=== PATIENT | female | born 1935 | race Caucasian/White ===

== ENCOUNTER → 2017-01-02 | Outpatient (CLI) | payer OTHER ==
[2015-11-11 09:11] VITALS: BP 182/76
[~2017-01-02] MED LIST: CALC500C PO; CHOL10002 PO; CINN500C PO; FENO160T PO; LISI2.5T PO; MAGN100T3 PO; METF500T4 PO; OMEG-33 PO; WARF2.5T71 PO; WARF2TAB7 PO; [UNRECOGNIZED DRUG - CODE] MC
--- NOTE | 2017-01-02 13:14 | RAD ---
DATE: 01/02/2017 EXAM: DIGITAL SCREEN BILAT W/CAD HISTORY: Routine screening COMPARISON: 12/29/2015 This study was interpreted with the benefit of Computerized Aided Detection (CAD). FINDINGS: The breasts are heterogeneously dense. No new or enlarging breast densities are seen. Benign type calcifications are present in both breasts. No suspicious microcalcifications have developed. Benign-appearing lymph node type densities are again noted in both axillary regions. IMPRESSION: Stable mammograms without evidence of malignancy. BI-RADS CATEGORY: 2 BENIGN FINDING(S) RECOMMENDED FOLLOW-UP: 12M 12 MONTH FOLLOW-UP PQRS compliance statement: Patient information was entered into a reminder system with a target due date for the next mammogram. Mammography is a sensitive method for finding small breast cancers, but it does not detect them all and is not a substitute for careful clinical examination. A negative mammogram does not negate a clinically suspicious finding and should not result in delay in biopsying a clinically suspicious abnormality. "Our facility is accredited by the [employer] Mammography Program."
== END | disposition home or self-care (01) ==
LOC: MAMMO 08:00
PROVIDERS: ATTEND Family Medicine
DX: Z12.31 Encounter for screening mammogram for malignant neoplasm of breast (principal)
CPT/HCPCS: G0202; 77067

== ENCOUNTER → 2018-01-05 | Outpatient (CLI) | payer OTHER | END | disposition home or self-care (01) | LOC: MAMMO 10:55 | DX: Z12.31 Encounter for screening mammogram for malignant neoplasm of breast (principal); I10 Essential (primary) hypertension; E11.9 Type 2 diabetes mellitus without complications | CPT/HCPCS: 77067 ==

== ENCOUNTER → 2018-01-13 | Outpatient (CLI) | payer OTHER | END | disposition home or self-care (01) | LOC: MAMMO 10:26 | DX: R92.8 Other abnormal and inconclusive findings on diagnostic imaging of breast (principal) | CPT/HCPCS: 77065; G0279 ==

== ENCOUNTER → 2018-06-12 | Outpatient (CLI) | payer OTHER ==
[2015-11-11 09:11] VITALS: BP 182/76
[~2018-06-12] MED LIST changes: -CINN500C PO; +CINN500C2 PO; +METF500T16 PO; -METF500T4 PO; -WARF2TAB7 PO; +WARF2TAB96 PO
--- NOTE | 2018-06-12 12:16 | KCIC ---
EXAM: Dual energy x-ray absorptiometry (DEXA). HISTORY: Postmenopausal female presents for osteoporosis screening. COMPARISON: None. TECHNIQUE: Dual energy x-ray absorptiometry of the lumbar spine and left hip was performed. Calculation of bone mineral density based on standard deviations above or below the expected young adult normal value (T-score) was completed. FINDINGS: The average bone mineral density in the 1st through 4th lumbar vertebrae is 1.363 g/cmxcm, corresponding with a T-score of 2.6. The average total bone mineral density in the left hip is 0.862 g/cmxcm, corresponding with a T-score of -0.7. IMPRESSION: Normal bone mineral density. Note: Definitions established by the World Health Organization: 1. Normal: T-score is -1.0 or above. 2. Osteopenia: T-score is between -1.0 and -2.5 . 3. Osteoporosis: T-score is -2.5 or below. Electronically signed by: Rose Hernandez MD (06/12/2018 12:12 PM) [place] [id number]
== END | disposition home or self-care (01) ==
LOC: KCIC DEXA 11:11
PROVIDERS: ATTEND Family Medicine
DX: Z13.820 Encounter for screening for osteoporosis (principal); M15.9 Polyosteoarthritis, unspecified; E11.9 Type 2 diabetes mellitus without complications; I10 Essential (primary) hypertension; Z78.0 Asymptomatic menopausal state; Z88.2 Allergy status to sulfonamides; Z88.1 Allergy status to other antibiotic agents; Z88.8 Allergy status to other drugs, medicaments and biological substances; Z88.6 Allergy status to analgesic agent; Z90.49 Acquired absence of other specified parts of digestive tract; Z86.718 Personal history of other venous thrombosis and embolism
CPT/HCPCS: 77080

== ENCOUNTER → 2018-07-01 | Outpatient (CLI) | payer OTHER ==
[2015-11-11 09:11] VITALS: BP 182/76
--- NOTE | 2018-07-01 16:55 | KCIC ---
Right hip, 2 views, 07/01/2018: HISTORY: Hip pain The bony structures are demineralized. There is mild narrowing of the right hip joint with mild marginal spurring. No fracture or dislocation is identified. Degenerative change is also noted at the symphysis pubis. IMPRESSION: 1. Demineralization. 2. Mild degenerative change at the right hip joint. Electronically signed by: Barrett Garcia MD (07/01/2018 4:51 PM) [facility]
== END | disposition home or self-care (01) ==
LOC: KCIC 11:50
PROVIDERS: ATTEND Family Medicine
DX: M16.11 Unilateral primary osteoarthritis, right hip (principal)
CPT/HCPCS: 73502

== ENCOUNTER → 2019-01-14 | Outpatient (CLI) | payer OTHER ==
[2015-11-11 09:11] VITALS: BP 182/76
--- NOTE | 2019-01-15 13:00 | RAD ---
DATE: 01/14/2019 EXAM: MAMMO MIKAELA SCREENING BILATERAL HISTORY: Routine screening COMPARISON: 12/29/2015, 01/02/2017, 01/05/2018 mammographic exams This study was interpreted with the benefit of Computerized Aided Detection (CAD). Breast Density: HETERO The breast parenchyma is heterogenously dense, which could reduce sensitivity of mammography. Breast parenchyma level C. FINDINGS: Benign calcifications are present. No new mass or distortion. IMPRESSION: Stable. BI-RADS CATEGORY: 1 NEGATIVE RECOMMENDED FOLLOW-UP: 12M 12 MONTH FOLLOW-UP PQRS compliance statement: Patient information was entered into a reminder system with a target due date in one year for the next mammogram. Mammography is a sensitive method for finding small breast cancers, but it does not detect them all and is not a substitute for careful clinical examination. A negative mammogram does not negate a clinically suspicious finding and should not result in delay in biopsying a clinically suspicious abnormality. "Our facility is accredited by the [employer] Mammography Program."
== END | disposition home or self-care (01) ==
LOC: MAMMO 09:31
PROVIDERS: ATTEND Family Medicine
DX: Z12.31 Encounter for screening mammogram for malignant neoplasm of breast (principal); R92.1 Mammographic calcification found on diagnostic imaging of breast
CPT/HCPCS: 77063; 77067

== ENCOUNTER → 2019-03-15 | Outpatient (CLI) | payer OTHER ==
[2015-11-11 09:11] VITALS: BP 182/76
--- NOTE | 2019-03-15 17:07 | KCIC ---
Sonography of the left parotid gland Clinical indications: Left parotid mass. FINDINGS: High-resolution sonography of the left parotid gland was performed. No solid mass or cyst or abscess is identified within the left parotid gland. IMPRESSION: Unremarkable sonogram of the left parotid gland. If a persistent mass is palpable clinically, then a CT study of the neck with IV contrast may be helpful for further evaluation. Electronically signed by: Claude Griffin MD (03/15/2019 5:04 PM) [id number]
== END | disposition home or self-care (01) ==
LOC: KCIC US 11:32
PROVIDERS: ATTEND Otolaryngology
DX: K11.21 Acute sialoadenitis (principal)
CPT/HCPCS: 76536

== ENCOUNTER → 2020-05-22 | Outpatient (CLI) | payer OTHER ==
[2015-11-11 09:11] VITALS: BP 182/76
--- NOTE | 2020-05-22 13:15 | KCIC ---
HIP LEFT 1 VIEW WITH PELVIS DATE: 05/22/2020 12:00 AM INDICATION: LEFT HIP PAIN . Pain since March COMPARISON: None. FINDINGS: Bones: There is no evidence of acute fracture or dislocation. Joints: Mild degenerative changes of the hips, SI joints, and symphysis pubis. Miscellaneous: Pelvic phleboliths and possible calcified uterine fibroid. IMPRESSION: No acute osseous abnormality. Mild degenerative changes. Electronically signed by: Román Obrien MD (05/22/2020 1:12 PM) [id number]
== END | disposition home or self-care (01) ==
LOC: KCIC 09:53
PROVIDERS: ATTEND Family Medicine
DX: M16.12 Unilateral primary osteoarthritis, left hip (principal); M46.1 Sacroiliitis, not elsewhere classified; I87.8 Other specified disorders of veins
CPT/HCPCS: 73501

== ENCOUNTER 2020-07-05 22:08 | Emergency (ER) | payer OTHER ==
[~2020-07-05] VITALS: Ht 165.1 cm; Wt 81.0 kg
--- NOTE | 2020-07-05 22:38 | PHYS DOC ---
Past Medical History Past Medical History: Diabetes-Type II, DVT, Hypertension Past Surgical History: Cholecystectomy, Tonsillectomy, Other Additional Past Surgical Histo: veins stripped; lap band; right shoulder; D&Cx4 Smoking Status: Never Smoker Alcohol Use: None Drug Use: None General Adult EDM: Chief Complaint: MECHANICAL FALL HPI: HPI: Patient is a 84 year old female who arrives for evaluation following a mechanical fall. Patient was bending over and lost her balance and fell and hit her head. Patient is on Coumadin, her INR earlier this week was 2.8. Patient was dazed but did not have obvious loss of consciousness. Patient has a 5 out of 10 headache. Patient has a skin tear on her right hand as well as some bruising to her face. Review of Systems: Review of Systems: Constitutional: Denies fever or chills. [] Eyes: Denies change in visual acuity. [] HENT: Denies nasal congestion or sore throat. [] Respiratory: Denies cough or shortness of breath. [] Cardiovascular: Denies chest pain or edema. [] GI: Denies abdominal pain, nausea, vomiting, bloody stools or diarrhea. [] : Denies dysuria. [] Musculoskeletal: Denies back pain or joint pain. [] Integument: Denies rash. Patient complains of a skin tear to right hand Neurologic: Patient complains of headache but no, focal weakness or sensory changes. [] Endocrine: Denies polyuria or polydipsia. [] Lymphatic: Denies swollen glands. [] Psychiatric: Denies depression or anxiety. [] Heart Score: Risk Factors: Risk Factors: DM, Current or recent (<one month) smoker, HTN, HLP, family history of CAD, obesity. Risk Scores: Score 0 - 3: 2.5% MACE over next 6 weeks - Discharge Home Score 4 - 6: 20.3% MACE over next 6 weeks - Admit for Clinical Observation Score 7 - 10: 72.7% MACE over next 6 weeks - Early Invasive Strategies Current Medications: Current Medications Tetanus/ Diphtheria Toxoids (Tenivac Syringe) 0.5 ml ONCE ONCE VAX IM Last administered on 07/05/20at 23:23; Start 07/05/20 at 22:45; Stop 07/05/20 at 22:46; Status DC Active Scripts Active Reported Metformin Hcl 500 Mg Tablet 1 Tab PO BID Cinnamon (Cinnamon Bark) 500 Mg Capsule 500 Mg PO Calci-Mix (Calcium Carbonate) 500 Mg Capsule 500 Mg PO TID Vitamin D (Cholecalciferol (Vitamin D3)) 1,000 Unit Tablet 1,000 Unit PO BID Magnesium (Magnesium Amino Acid Chelate) 100 Mg Tablet 100 Mg PO BID Lysine Hcl 100 Gm Powder 100 Gm MC [place] 3 1,000 Mg Softgel ([place]-3 Fatty Acids/Fish Oil) 1 Each Capsule 1 Each PO DAILY Fenofibrate 160 Mg Tablet 160 Mg PO DAILY Warfarin Sodium 2 Mg Tablet 2 Mg PO Warfarin Sodium 2.5 Mg Tablet 2.5 Mg PO Lisinopril 2.5 Mg Tablet 2.5 Mg PO DAILY Current Medications Medications (Trade) Dose Ordered Sig/Cydney Start Time Stop Time Status Last Admin Dose Admin Tetanus/ Diphtheria Toxoids (Tenivac Syringe) 0.5 ml ONCE ONCE 07/05/20 22:45 07/05/20 22:46 Allergies: Allergies: Allergies Coded Allergies Type Severity Reaction Last Updated Verified caffeine Allergy Severe Anxiety 01/11/14 Yes Sulfa (Sulfonamide Antibiotics) Allergy Intermediate 10/06/15 Yes aspirin Allergy Intermediate tennitis 10/06/15 Yes camphor Allergy Intermediate 10/06/15 Yes cephalexin Allergy Intermediate 10/06/15 Yes ciprofloxacin Allergy Intermediate 01/11/14 No clocortolone Allergy Intermediate 10/06/15 Yes ibuprofen Allergy Intermediate 10/06/15 Yes meperidine Allergy Intermediate 10/06/15 Yes morphine Allergy Intermediate 10/06/15 Yes quinine Allergy Intermediate 10/06/15 Yes tetracycline Allergy Intermediate 10/06/15 Yes thimerosal Allergy Intermediate 10/06/15 Yes tramadol Allergy Intermediate 10/06/15 Yes Uncoded Allergies Type Severity Reaction Last Updated Verified mycins Allergy Unknown 10/06/15 Physical Exam: PE: Constitutional: Well developed, well nourished, no acute distress, non-toxic appearance. [] HENT: Abrasion to the right cheek, scattered bruising predominantly on the right side. No septal hematoma, ears normal no trismus no malocclusion Eyes: PERRLA, EOMI, conjunctiva normal, no discharge. [] Neck: Mildly tender. Cardiovascular: Occasionally irregular, peripheral pulse intact, cap refill brisk Lungs & Thorax: Bilateral breath sounds clear, no respiratory distress Abdomen: soft, no tenderness, no masses, no pulsatile masses. [] Skin: Skin tear to right hand, abrasion to right cheek Back: No tenderness, no CVA tenderness. [] Extremities: Skin tear to dorsum of right hand, neurovascular intact distally Neurologic: Alert and oriented X 3, normal motor function, normal sensory function, no focal deficits noted. [] Psychologic: Affect normal, judgement normal, mood normal. [] Current Patient Data: Labs: Laboratory Tests Test 07/05/20 22:44 White Blood Count 8.8 x10^3/uL Red Blood Count 4.13 x10^6/uL Hemoglobin 12.7 g/dL Hematocrit 37.8 % Mean Corpuscular Volume 92 fL Mean Corpuscular Hemoglobin 31 pg Mean Corpuscular Hemoglobin Concent 34 g/dL Red Cell Distribution Width 13.2 % Platelet Count 265 x10^3/uL Neutrophils (%) (Auto) 61 % Lymphocytes (%) (Auto) 27 % Monocytes (%) (Auto) 8 % Eosinophils (%) (Auto) 3 % Basophils (%) (Auto) 1 % Neutrophils # (Auto) 5.4 x10^3/uL Lymphocytes # (Auto) 2.4 x10^3/uL Monocytes # (Auto) 0.7 x10^3/uL Eosinophils # (Auto) 0.3 x10^3/uL Basophils # (Auto) 0.1 x10^3/uL Prothrombin Time 31.3 SEC Prothromb Time International Ratio 3.0 Activated Partial Thromboplast Time 55 SEC Sodium Level 135 mmol/L Potassium Level 4.2 mmol/L Chloride Level 100 mmol/L Carbon Dioxide Level 28 mmol/L Anion Gap 7 Blood Urea Nitrogen 20 mg/dL Creatinine 1.0 mg/dL Estimated GFR (Cockcroft-Gault) 52.8 BUN/Creatinine Ratio 20 Glucose Level 122 mg/dL Calcium Level 9.6 mg/dL Total Bilirubin 0.2 mg/dL Aspartate Amino Transf (AST/SGOT) 17 U/L Alanine Aminotransferase (ALT/SGPT) 18 U/L Alkaline Phosphatase 24 U/L Total Protein 7.4 g/dL Albumin 3.6 g/dL Albumin/Globulin Ratio 0.9 Current Medications Medications (Trade) Dose Ordered Sig/Cydney Route PRN Reason Start Time Stop Time Status Last Admin Dose Admin Tetanus/ Diphtheria Toxoids (Tenivac Syringe) 0.5 ml ONCE ONCE VAX IM 07/05/20 22:45 07/05/20 22:46 DC 07/05/20 23:23 Vital Signs: Vital Signs Date Time Temp Pulse Resp B/P (MAP) Pulse Ox O2 Delivery O2 Flow Rate FiO2 07/05/20 22:15 97.9 75 18 186/80 (115) 95 Room Air 97.9 EKG: EKG: [] Radiology/Procedures: Radiology/Procedures: [][place] [id number] [place] [address] IMAGING REPORT Signed PATIENT: RITU PEREZ ACCOUNT: [id number] : 1935 LOCATION: ER AGE: 84 SEX: F EXAM STATUS: REG ER ORD. PHYSICIAN: ORLANDO PACKER MD REASON: FALL PROCEDURE: PELVIS EXAM: PELVIS 1 VIEW. HISTORY: Fall, pain. COMPARISON: 05/22/2020. FINDINGS: There are limitations from underpenetration. No fractures are identified. The joint spaces and alignment of both hips are maintained. There are moderate to severe degenerative changes within the lower lumbar spine. A 3.2 cm pelvic calcification is likely a degenerated fibroid. Cholecystectomy clips are noted. IMPRESSION: 1. No displaced fracture. Electronically signed by: Robby Vaughan MD (07/05/2020 10:56 PM) [facility] DICTATED and SIGNED BY: AIRAM VAUGHAN MD DATE: 07/05/20 [id number] [place] [address] IMAGING REPORT Signed PATIENT: RITU PEREZ ACCOUNT: [id number] : 1935 LOCATION: ER AGE: 84 SEX: F EXAM STATUS: REG ER ORD. PHYSICIAN: ORLANDO PACKER MD REASON: FALL PROCEDURE: PORTABLE CHEST 1V EXAM: CHEST ONE VIEW. HISTORY: Fall, trauma. COMPARISON: 11/11/2015. FINDINGS: A frontal view of the chest is obtained. There are no confluent infiltrates. There is no pneumothorax or pleural effusion. The heart is not enlarged. There are atherosclerotic calcifications of the aorta. The right distal clavicle has been resected. IMPRESSION: 1. No confluent infiltrates. Electronically signed by: Robby Vaughan MD (07/05/2020 10:57 PM) [facility] DICTATED and SIGNED BY: AIRAM VAUGHAN MD DATE: 07/05/20 [address] [facility] [address] [place] [address] IMAGING REPORT Signed PATIENT: RITU PEREZ ACCOUNT: [id number] : 1935 LOCATION: ER AGE: 84 SEX: F EXAM STATUS: REG ER ORD. PHYSICIAN: ORLANDO PACKER MD REASON: FALL, HEAD INJURY ON COUMADIN PROCEDURE: CT CERVICAL SPINE WO CONTRAST EXAM: 1. CT HEAD WITHOUT CONTRAST. 2. CT FACIAL BONES WITHOUT CONTRAST. 3. CT CERVICAL SPINE WITHOUT CONTRAST. HISTORY: Fall with head and facial trauma. Anticoagulated. TECHNIQUE: Computed tomography of the head, facial bones and cervical spine was performed without intravenous contrast. One or more of the following individualized dose reduction techniques were utilized for this examination: 1. Automated exposure control. 2. Adjustment of the mA and/or kV according to patient size. 3. Use of iterative reconstruction technique. COMPARISON: None. FINDINGS: There is no intracranial hemorrhage. Hypoattenuation within the periventricular white matter indicates mild chronic microangiopathic change. Prominence of the lateral ventricles and hemispheric sulci indicates mild atrophy for patient age. The temporal bones are unremarkable. The calvarium reveals no suspicious lesions. There is mild soft tissue swelling along the right forehead. No facial fractures are identified. The visualized paranasal sinuses appear clear. There are changes of bilateral cataract surgery. There is mild reversal of the normal cervical lordosis across C5-C7, likely positional. There is moderate osteoarthritis at C1/2. No fractures are identified. Degenerative disc disease is moderate to severe from C5 T2 and mild more superiorly. There is no prevertebral soft tissue swelling. At C2-3, there is a moderate posterior disc bulge, likely with a superimposed moderate central protrusion. Central canal stenosis appears at least mild with abutment of the anterior cord. Right facet osteoarthritis is moderate to severe. Uncovertebral osteoarthritis is mild on the right. Neural foraminal stenosis is moderate on the right. At C3-4, there is a small posterior disc-osteophyte complex. Left facet osteoarthritis is severe. Uncovertebral osteoarthritis is moderate bilaterally. Neural foraminal stenosis is severe bilaterally. Central canal stenosis is mild to moderate. At C4-5, there is a small posterior disc bulge. Facet osteoarthritis is moderate to severe on the left greater than right. Uncovertebral osteoarthritis is mild bilaterally. Neural foraminal stenosis is moderate to severe bilaterally. At C5-6, there is a moderate posterior disc-osteophyte complex. Central canal stenosis appears moderate. Uncovertebral osteoarthritis is moderate bilaterally. Neural foraminal stenosis is moderate to severe bilaterally. At C6-7, there is a small posterior disc bulge. Uncovertebral osteoarthritis is mild bilaterally. Neural foraminal stenosis is moderate to severe bilaterally. IMPRESSION: 1. No acute intracranial findings. 2. No facial fractures. 3. No cervical fracture or acute malalignment. 4. Moderate to severe cervical degenerative changes result in central canal stenosis that is at least moderate at C5-6 and mild to moderate elsewhere. Multilevel bilateral neural foraminal stenosis is up to severe as above. Electronically signed by: Robby Vaughan MD (07/05/2020 11:22 PM) [facility] DICTATED and SIGNED BY: AIRAM VAUGHAN MD DATE: 07/05/202321 Course & Med Decision Making: Course & Med Decision Making Pertinent Labs and Imaging studies reviewed. (See chart for details) [] 84-year-old female presents with a mechanical fall. Patient is on Coumadin and hit her head. Therefore head CT was done. Fortunately all imaging are negative. Patient was given a tetanus shot. Nurse instructed put Steri-Strips on the hand and patient be stable for discharge. Dragon Disclaimer: Dragon Disclaimer: This electronic medical record was generated, in whole or in part, using a voice recognition dictation system. Departure Departure Impression: Primary Impression: Head injury Additional Impressions: Facial contusion Skin tear of right hand without complication Condition: STABLE Referrals: JEANNETTE DEL ROSARIO (PCP) 2-3 days Patient Instructions: Head Injury, Adult Additional Instructions: EMERGENCY DEPARTMENT GENERAL DISCHARGE INSTRUCTIONS THANK YOU for coming to [facility] Emergency Department (ED) today and trusting us with your care. We trust that you had a positive experience in our Emergency Department. If you wish to speak to the department Management you can contact the supervisor assembly department at . YOUR FOLLOW UP INSTRUCTIONS ARE FOLLOWS: Do you have a private doctor? If you do not have a private doctor, please ask for a resource list of physicians or clinics that may be able to assist you with follow up care. The Emergency Physician has interpreted your x-rays. The X-ray specialist will also review them. If there is a change in the findings you will be notified in 48 hours when at all possible. A lab test or lab culture may have been done, your results will be reviewed and you will be notified if you need a change in treatment. ADDITIONAL INSTRUCTIONS AND INFORMATION Your care today has been supervised by a physician who is specially trained in emergency care. Many problems require more than one evaluation for a complete diagnosis and treatment. We recommend that you schedule your follow up appointment as recommended to ensure complete treatment of your illness or injury. If you are unable to obtain follow up care and continue to have a problem, or if your condition worsens we recommend that you return to the ED. We are not able to safely determine your condition over the phone nor are we able to give sound medical advice over the phone. For these safety reasons, if you call for medical advice we will ask you to come to the ED for further evaluation If you have any questions regarding these discharge instructions please call the ED at . SAFETY INFORMATION In the interest of safety, wellness, and injury prevention; we encourage you to wear your seatbelt, if you smoke; quit smoking, and we encourage your family to use protective helmet for bicycling and other sporting events that present an increased risk for head injury. IF YOUR SYMPTOMS WORSEN OR NEW SYMPTOMS DEVELOP, OR YOU HAVE CONCERNS ABOUT YOUR CONDITION; OR IF YOUR CONDITION WORSENS WHILE YOU ARE WAITING FOR YOUR FOLLOW UP APPOINTMENT; EITHER CONTACT YOUR PRIMARY CARE DOCTOR, THE PHYSICIAN WHOSE NAME AND NUMBER YOU WERE GIVEN, OR RETURN TO THE ED IMMEDIATELY. ORLANDO PACKER MD Jul 05, 2020 22:38
[2020-07-05] MEDS ORDERED: TETANUS AND DIPHTHERIA TOX/PF 0.5 ML DISP.SYRIN. VAX IM ONE (22:45)
[2020-07-05 22:57] LABS: BASO # 0.1 x10^3/uL (0.0-0.2); BASO % 1 % (0-3); EOS # 0.3 x10^3/uL (0.0-0.7); EOS % 3 % (0-3); HEMATOCRIT 37.8 % (36.0-47.0); HEMOGLOBIN 12.7 g/dL (12.0-15.5); LYMPH # 2.4 x10^3/uL (1.0-4.8); LYMPH % 27 % (24-48); MEAN CORPUSCULAR HEMOGLOBIN 31 pg (25-35); MEAN CORPUSCULAR HGB CONC 34 g/dL (31-37); MEAN CORPUSCULAR VOLUME 92 fL (79-100); MONO # 0.7 x10^3/uL (0.0-1.1); MONO % 8 % (0-9); NEUT # 5.4 x10^3/uL (1.8-7.7); NEUT % 61 % (31-73); PLATELET COUNT 265 x10^3/uL (140-400); RED BLOOD COUNT 4.13 x10^6/uL (3.50-5.40); RED CELL DISTRIBUTION WIDTH 13.2 % (11.5-14.5); WHITE BLOOD COUNT 8.8 x10^3/uL (4.0-11.0)
--- NOTE | 2020-07-05 22:59 | RAD ---
EXAM: PELVIS 1 VIEW. HISTORY: Fall, pain. COMPARISON: 05/22/2020. FINDINGS: There are limitations from underpenetration. No fractures are identified. The joint spaces and alignment of both hips are maintained. There are moderate to severe degenerative changes within the lower lumbar spine. A 3.2 cm pelvic calcification is likely a degenerated fibroid. Cholecystectomy clips are noted. IMPRESSION: 1. No displaced fracture. Electronically signed by: Robby Vaughan MD (07/05/2020 10:56 PM) [facility]
--- NOTE | 2020-07-05 23:00 | RAD ---
EXAM: CHEST ONE VIEW. HISTORY: Fall, trauma. COMPARISON: 11/11/2015. FINDINGS: A frontal view of the chest is obtained. There are no confluent infiltrates. There is no pneumothorax or pleural effusion. The heart is not enlarged. There are atherosclerotic calcifications of the aorta. The right distal clavicle has been resected. IMPRESSION: 1. No confluent infiltrates. Electronically signed by: Robby Vaughan MD (07/05/2020 10:57 PM) [facility]
[2020-07-05 23:01] LABS: CALCIUM 9.6 mg/dL (8.5-10.1); GFR 52.8; POTASSIUM 4.2 mmol/L (3.5-5.1)
[2020-07-05 23:05] LABS: PROTHROMBIN TIME PATIENT 31.3 SEC (11.7-14.0)
[2020-07-05 23:07] LABS: ALBUMIN 3.6 g/dL (3.4-5.0); ALBUMIN/GLOBULIN RATIO 0.9 (1.0-1.7); TOTAL BILIRUBIN 0.2 mg/dL (0.2-1.0); TOTAL PROTEIN 7.4 g/dL (6.4-8.2)
--- NOTE | 2020-07-05 23:25 | RAD ---
EXAM: 1. CT HEAD WITHOUT CONTRAST. 2. CT FACIAL BONES WITHOUT CONTRAST. 3. CT CERVICAL SPINE WITHOUT CONTRAST. HISTORY: Fall with head and facial trauma. Anticoagulated. TECHNIQUE: Computed tomography of the head, facial bones and cervical spine was performed without intravenous contrast. One or more of the following individualized dose reduction techniques were utilized for this examination: 1. Automated exposure control. 2. Adjustment of the mA and/or kV according to patient size. 3. Use of iterative reconstruction technique. COMPARISON: None. FINDINGS: There is no intracranial hemorrhage. Hypoattenuation within the periventricular white matter indicates mild chronic microangiopathic change. Prominence of the lateral ventricles and hemispheric sulci indicates mild atrophy for patient age. The temporal bones are unremarkable. The calvarium reveals no suspicious lesions. There is mild soft tissue swelling along the right forehead. No facial fractures are identified. The visualized paranasal sinuses appear clear. There are changes of bilateral cataract surgery. There is mild reversal of the normal cervical lordosis across C5-C7, likely positional. There is moderate osteoarthritis at C1/2. No fractures are identified. Degenerative disc disease is moderate to severe from C5 T2 and mild more superiorly. There is no prevertebral soft tissue swelling. At C2-3, there is a moderate posterior disc bulge, likely with a superimposed moderate central protrusion. Central canal stenosis appears at least mild with abutment of the anterior cord. Right facet osteoarthritis is moderate to severe. Uncovertebral osteoarthritis is mild on the right. Neural foraminal stenosis is moderate on the right. At C3-4, there is a small posterior disc-osteophyte complex. Left facet osteoarthritis is severe. Uncovertebral osteoarthritis is moderate bilaterally. Neural foraminal stenosis is severe bilaterally. Central canal stenosis is mild to moderate. At C4-5, there is a small posterior disc bulge. Facet osteoarthritis is moderate to severe on the left greater than right. Uncovertebral osteoarthritis is mild bilaterally. Neural foraminal stenosis is moderate to severe bilaterally. At C5-6, there is a moderate posterior disc-osteophyte complex. Central canal stenosis appears moderate. Uncovertebral osteoarthritis is moderate bilaterally. Neural foraminal stenosis is moderate to severe bilaterally. At C6-7, there is a small posterior disc bulge. Uncovertebral osteoarthritis is mild bilaterally. Neural foraminal stenosis is moderate to severe bilaterally. IMPRESSION: 1. No acute intracranial findings. 2. No facial fractures. 3. No cervical fracture or acute malalignment. 4. Moderate to severe cervical degenerative changes result in central canal stenosis that is at least moderate at C5-6 and mild to moderate elsewhere. Multilevel bilateral neural foraminal stenosis is up to severe as above. Electronically signed by: Robby Vaughan MD (07/05/2020 11:22 PM) [facility]
[2020-07-06 01:09] VITALS: BP 153/67
== END 2020-07-06 01:38 | disposition home or self-care (01) ==
LOC: ER 22:08
DX: S61.411A Laceration without foreign body of right hand, initial encounter (principal); S00.83XA Contusion of other part of head, initial encounter; E11.9 Type 2 diabetes mellitus without complications; I10 Essential (primary) hypertension; R51.9 Headache, unspecified; R07.89 Other chest pain; Z86.718 Personal history of other venous thrombosis and embolism; Z79.01 Long term (current) use of anticoagulants; Z88.1 Allergy status to other antibiotic agents; Z88.2 Allergy status to sulfonamides; Z88.5 Allergy status to narcotic agent; Z88.6 Allergy status to analgesic agent; Z88.8 Allergy status to other drugs, medicaments and biological substances; W18.39XA Other fall on same level, initial encounter; Y93.89 Activity, other specified; Y92.89 Other specified places as the place of occurrence of the external cause; Y99.8 Other external cause status
CPT/HCPCS: 36415; 70450; 70486; 71045; 72125; 72170; 80053; 85025; 85610; 85730; 86850; 86900; 86901; 90471; 90714; 99285-25

== ENCOUNTER 2021-12-16 14:31 | Inpatient (IN) | payer MEDICARE, OTHER ==
[~2021-12-16] VITALS: Ht 152.4 cm; Wt 71.5 kg
[~2021-12-16 14:31] MED LIST changes: -LISI2.5T PO; +LISI2.5T12 PO
[2021-12-16] MEDS ORDERED: IV NORMAL SALINE 1000ML BAG 1,000 ML IV ONE (15:30)
[2021-12-16] MEDS ORDERED: IPRATRPIUM/ALBUTEROL 0.5/2.5MG 3 ML NEBU. NEB ONE (15:30)
--- NOTE | 2021-12-16 15:41 | PHYS DOC ---
Past Medical History Past Medical History: Diabetes-Type II, DVT, Hypertension Past Surgical History: Cholecystectomy, Tonsillectomy, Other Additional Past Surgical Histo: veins stripped; lap band; right shoulder; D&Cx4 Smoking Status: Never Smoker Alcohol Use: None Drug Use: None General Adult EDM: Chief Complaint: MULTIPLE COMPLAINTS HPI: HPI: Patient is an 86-year-old female who presents to the emergency department for multiple complaints. Patient reports that over the last 3 days she has had nausea, diarrhea, green productive cough, nasal congestion and drainage, fatigue, body aches and shortness of breath with exertion and laying flat. Patient has a history of DVT, diabetes and hypertension and is on Coumadin. Patient denies fevers, urinary symptoms, blood in her stools, recent travel, sick exposure, chest pain. Patient reports that she took 2 tests at home for COVID-19 was negative. Review of Systems: Review of Systems: HENT: See HPI Respiratory: See HPI Cardiovascular: See HPI GI: See HPI : See HPI Musculoskeletal: See HPI Heart Score: C/O Chest Pain: No Risk Factors: Risk Factors: DM, Current or recent (<one month) smoker, HTN, HLP, family history of CAD, obesity. Risk Scores: Score 0 - 3: 2.5% MACE over next 6 weeks - Discharge Home Score 4 - 6: 20.3% MACE over next 6 weeks - Admit for Clinical Observation Score 7 - 10: 72.7% MACE over next 6 weeks - Early Invasive Strategies Allergies: Allergies: Allergies Coded Allergies Type Severity Reaction Last Updated Verified caffeine Allergy Severe Anxiety 01/11/14 Yes Sulfa (Sulfonamide Antibiotics) Allergy Intermediate 10/06/15 Yes aspirin Allergy Intermediate tennitis 10/06/15 Yes camphor Allergy Intermediate 10/06/15 Yes cephalexin Allergy Intermediate 10/06/15 Yes ciprofloxacin Allergy Intermediate 01/11/14 No clocortolone Allergy Intermediate 10/06/15 Yes ibuprofen Allergy Intermediate 10/06/15 Yes meperidine Allergy Intermediate 10/06/15 Yes morphine Allergy Intermediate 10/06/15 Yes quinine Allergy Intermediate 10/06/15 Yes tetracycline Allergy Intermediate 10/06/15 Yes thimerosal Allergy Intermediate 10/06/15 Yes tramadol Allergy Intermediate 10/06/15 Yes Uncoded Allergies Type Severity Reaction Last Updated Verified mycins Allergy Unknown 10/06/15 Physical Exam: PE: Constitutional: Well developed, well nourished, no acute distress, non-toxic appearance. [] HENT: Normocephalic, atraumatic, bilateral external ears normal, oropharynx moist, no oral exudates, nose normal. [] Eyes: PERRL, EOMI, conjunctiva normal, no discharge. [] Neck: Normal range of motion no stridor Cardiovascular:Heart rate regular rhythm, no murmur [] Lungs & Thorax: Wheezing noted throughout Abdomen: Bowel sounds normal, soft, no tenderness, no masses, obese, no pulsatile masses. [] Skin: Warm, dry, no erythema, no rash. [] Back: Normal range of motion Extremities: No tenderness, no cyanosis, no clubbing, ROM intact, no edema. [] Neurologic: Alert and oriented X 3, normal motor function, normal sensory function, no focal deficits noted. [] Psychologic: Affect normal, judgement normal, mood normal. [] Current Patient Data: Labs: Laboratory Tests Test 12/16/21 15:35 12/16/21 16:15 White Blood Count 11.2 x10^3/uL Red Blood Count 4.12 x10^6/uL Hemoglobin 12.4 g/dL Hematocrit 37.8 % Mean Corpuscular Volume 92 fL Mean Corpuscular Hemoglobin 30 pg Mean Corpuscular Hemoglobin Concent 33 g/dL Red Cell Distribution Width 12.4 % Platelet Count 310 x10^3/uL Neutrophils (%) (Auto) 81 % Lymphocytes (%) (Auto) 12 % Monocytes (%) (Auto) 6 % Eosinophils (%) (Auto) 0 % Basophils (%) (Auto) 1 % Neutrophils # (Auto) 9.1 x10^3/uL Lymphocytes # (Auto) 1.3 x10^3/uL Monocytes # (Auto) 0.7 x10^3/uL Eosinophils # (Auto) 0.0 x10^3/uL Basophils # (Auto) 0.1 x10^3/uL Prothrombin Time 22.1 SEC Prothromb Time International Ratio 2.0 Activated Partial Thromboplast Time 52 SEC Sodium Level 127 mmol/L Potassium Level 4.3 mmol/L Chloride Level 91 mmol/L Carbon Dioxide Level 25 mmol/L Anion Gap 11 Blood Urea Nitrogen 13 mg/dL Creatinine 0.7 mg/dL Estimated GFR (Cockcroft-Gault) 79.3 BUN/Creatinine Ratio 19 Glucose Level 131 mg/dL Lactic Acid Level 1.1 mmol/L Calcium Level 9.6 mg/dL Total Bilirubin 0.3 mg/dL Aspartate Amino Transf (AST/SGOT) 25 U/L Alanine Aminotransferase (ALT/SGPT) 17 U/L Alkaline Phosphatase 27 U/L Troponin I High Sensitivity 13 ng/L BA-Buz-O-Type Natriuretic Peptide 414 pg/mL Total Protein 8.2 g/dL Albumin 3.7 g/dL Albumin/Globulin Ratio 0.8 Lipase 163 U/L Influenza Type A Antigen Negative Influenza Type B Antigen Negative SARS-CoV-2 Antigen (Rapid) Negative Current Medications Medications (Trade) Dose Ordered Sig/Cydney Route PRN Reason Start Time Stop Time Status Last Admin Dose Admin Albuterol/ Ipratropium (Duoneb) 3 ml 1X ONCE NEB 12/16/21 15:30 12/16/21 15:38 DC 12/16/21 15:44 Sodium Chloride 1,000 ml @ 1,000 mls/hr 1X ONCE IV 12/16/21 15:30 12/16/21 16:29 DC 12/16/21 15:47 Ondansetron HCl (Zofran) 4 mg 1X ONCE IVP 12/16/21 15:45 12/16/21 15:46 DC 12/16/21 15:46 Iohexol (Omnipaque 350 Mg/ml) 90 ml 1X ONCE IV 12/16/21 16:30 12/16/21 16:31 DC 12/16/21 16:51 Info (CONTRAST GIVEN -- Rx MONITORING) 1 each PRN DAILY PRN MC SEE COMMENTS 12/16/21 16:30 12/18/21 16:29 Vital Signs: Vital Signs Date Time Temp Pulse Resp B/P (MAP) Pulse Ox O2 Delivery O2 Flow Rate FiO2 12/16/21 14:50 98.7 94 20 221/94 (136) 91 Room Air 98.7 EKG: EKG: EKG performed by ER staff at 1526 shows sinus rhythm with a rate of 96, QTc is 461, no STEMI read by Dr. Butt at 1529. [] Radiology/Procedures: Radiology/Procedures: []PROCEDURE: CT ANGIOGRAPHY CHEST Exam: CT of chest with contrast INDICATION: Short of air, history of DVT TECHNIQUE: Sequential axial images through the chest obtained following the administration of 90 mL of Isovue-370 IV contrast. Sagittal and coronal reformatted images were reconstructed from the axial data and reviewed. 3-D reformatted images were reconstructed from the axial data and reviewed. Exposure: One or more of the following in the visualized dose reduction techniques were utilized for this examination: 1. Automated exposure control 2. Adjustment of the MA and/or KV according to patient size 3. Use of iterative of reconstructive technique Comparisons: Chest x-ray same day FINDINGS: Visualized portions of the thyroid are unremarkable. No enlargement isn't lymph nodes are identified. Heart size is normal. No pericardial effusion. Mild coronary calcifications. Thoracic aorta has a normal course and caliber. Pulmonary artery is not enlarged. No pulmonary embolus identified within the main, lobar or segmental pulmonary arteries. Airways are patent. Mild bronchial wall thickening. No consolidation or pneumothorax. No pleural effusion or thickening. Gastric banding noted. Diffuse hepatic steatosis. No suspicious osseous lesions or acute fractures. IMPRESSION: 1. No pulmonary embolus identified within the main, lobar or segmental pulmonary arteries 2. Mild bronchial wall thickening, may relate to bronchitis. Electronically signed by: Linn Patel MD (12/16/2021 4:51 PM) [facility] DICTATED and SIGNED BY: LINN PATEL MD DATE: 12/16/21 1646 REASON: soa PROCEDURE: PORTABLE CHEST 1V Chest AP portable at 1542: Reason for examination: Short of breath. Comparison is made to previous study dated 07/05/2020. The heart size is normal. Mediastinum is unremarkable. Lung estrada show mild increase in the lung markings at the bases which could reflect some mild interstitial infiltrates. No pleural effusions are seen. No pneumothorax is evident. No acute bony abnormalities are seen. IMPRESSION: Mildly increased markings in the lung bases. This could reflect some developing infiltrates. Recommend clinical correlation and follow-up. Electronically signed by: Wilfrid Hays MD (12/16/2021 4:31 PM) [facility] DICTATED and SIGNED BY: WILFRID HAYS MD DATE: 12/16/21 1629 Course & Med Decision Making: Course & Med Decision Making Pertinent Labs and Imaging studies reviewed. (See chart for details) Patient presents to the emergency department for multiple complaints including nausea, diarrhea, cough, nasal congestion, shortness of breath with exertion and laying flat, fatigue and body aches. Patient does have a history of DVT on Coumadin, therefore CT angio chest was performed to rule out pulmonary embolisms. Patient's work-up also included blood work including lipase, troponin, lactic acid, BNP. Chest x-ray performed to rule out pneumonia. EKG performed. Patient treated with IV fluids and a DuoNeb as she is wheezing as well as nausea medication. Following DuoNeb, patient's O2 saturation is 90% and is requiring 2 L of oxygen. Patient has a therapeutic INR, CBC mostly unremarkable, sodium is 127, she is symptomatic with nausea. Negative troponin, negative lactic acid, negative lipase, negative BNP. Chest x-ray shows infiltrates in the lung bases. CT angio does not show any blood clots. She had negative Covid and flu testing. Patient will be treated with IV antibiotics for the pneumonia. Patient will be prescribed azithromycin and rocephin-she reports that her reactoin to cephalexin and "mycins" are nausea, she will be prescribed prn nausea medication. As patient is requiring oxygen with pneumonia, she is also hyponatremic and sym ptomatic therefore she will need to be admitted to the emergency department. Discussed patient's case with Dr. Sumner who advised giving patient a second liter of normal saline and repeating labs in the morning and treating her pneumonia with IV antibiotics. ER bridge orders placed at 1719 Dragon Disclaimer: Britney Disclaimer: This electronic medical record was generated, in whole or in part, using a voice recognition dictation system. Departure Departure Impression: Primary Impression: Pneumonia Qualified Codes: J18.9 - Pneumonia, unspecified organism Additional Impressions: Hypoxia Hyponatremia Disposition: ADMITTED INPATIENT Admitting Physician: MADISYN Condition: GOOD Referrals: JEANNETTE DEL ROSARIO (PCP) WES JAMIL APRN Dec 16, 2021 15:41
[2021-12-16] MEDS ORDERED: ONDANSETRON PF 4 MG/2 ML VIAL. IVP ONE ×2 (15:45→17:30)
[2021-12-16 15:47] LABS: BASO # 0.1 x10^3/uL (0.0-0.2); BASO % 1 % (0-3); EOS % 0 % (0-3); HEMATOCRIT 37.8 % (36.0-47.0); HEMOGLOBIN 12.4 g/dL (12.0-15.5); LYMPH # 1.3 x10^3/uL (1.0-4.8); LYMPH % 12 % (24-48); MEAN CORPUSCULAR HEMOGLOBIN 30 pg (25-35); MEAN CORPUSCULAR HGB CONC 33 g/dL (31-37); MEAN CORPUSCULAR VOLUME 92 fL (79-100); MONO # 0.7 x10^3/uL (0.0-1.1); MONO % 6 % (0-9); NEUT # 9.1 x10^3/uL (1.8-7.7); NEUT % 81 % (31-73); PLATELET COUNT 310 x10^3/uL (140-400); RED BLOOD COUNT 4.12 x10^6/uL (3.50-5.40); RED CELL DISTRIBUTION WIDTH 12.4 % (11.5-14.5); WHITE BLOOD COUNT 11.2 x10^3/uL (4.0-11.0)
[2021-12-16 16:00] LABS: PROTHROMBIN TIME PATIENT 22.1 SEC (11.7-14.0)
[2021-12-16 16:01] LABS: CALCIUM 9.6 mg/dL (8.5-10.1); CREATININE 0.7 mg/dL (0.6-1.0); GFR 79.3; POTASSIUM 4.3 mmol/L (3.5-5.1)
[2021-12-16 16:07] LABS: ALBUMIN 3.7 g/dL (3.4-5.0); ALBUMIN/GLOBULIN RATIO 0.8 (1.0-1.7); TOTAL BILIRUBIN 0.3 mg/dL (0.2-1.0); TOTAL PROTEIN 8.2 g/dL (6.4-8.2)
[2021-12-16] MEDS ORDERED: IOHEXOL 350 MG/ML 100 ML VIAL. IV ONE (16:30)
[2021-12-16] MEDS ORDERED: CONTRAST GIVEN. MC PRN (16:30)
--- NOTE | 2021-12-16 16:33 | RAD ---
Chest AP portable at 1542: Reason for examination: Short of breath. Comparison is made to previous study dated 07/05/2020. The heart size is normal. Mediastinum is unremarkable. Lung estrada show mild increase in the lung mar kings at the bases which could reflect some mild interstitial infiltrates. No pleural effusions are s een. No pneumothorax is evident. No acute bony abnormalities are seen. IMPRESSION: Mildly increased markings in the lung bases. This could reflect some developing infiltrates. Recommen d clinical correlation and follow-up. Electronically signed by: Lizbeth Meyers MD (12/16/2021 4:31 PM) [facility]
[2021-12-16 16:46] LABS: INFLUENZA A PATIENT NEGATIVE (NEGATIVE); INFLUENZA B PATIENT NEGATIVE (NEGATIVE)
--- NOTE | 2021-12-16 16:53 | RAD ---
Exam: CT of chest with contrast INDICATION: Short of air, history of DVT TECHNIQUE: Sequential axial images through the chest obtained following the administration of 90 mL o f Isovue-370 IV contrast. Sagittal and coronal reformatted images were reconstructed from the axial d sol and reviewed. 3-D reformatted images were reconstructed from the axial data and reviewed. Exposure: One or more of the following in the visualized dose reduction techniques were utilized for this examination: 1. Automated exposure control 2. Adjustment of the MA and/or KV according to patient size 3. Use of iterative of reconstructive technique Comparisons: Chest x-ray same day FINDINGS: Visualized portions of the thyroid are unremarkable. No enlargement isn't lymph nodes are identified. Heart size is normal. No pericardial effusion. Mild coronary calcifications. Thoracic aorta has a nor mal course and caliber. Pulmonary artery is not enlarged. No pulmonary embolus identified within the main, lobar or segmental pulmonary arteries. Airways are patent. Mild bronchial wall thickening. No consolidation or pneumothorax. No pleural effusion or thickening. Gastric banding noted. Diffuse hepatic steatosis. No suspicious osseous lesions or acute fractures. IMPRESSION: 1. No pulmonary embolus identified within the main, lobar or segmental pulmonary arteries 2. Mild bronchial wall thickening, may relate to bronchitis. Electronically signed by: Linn Awad MD (12/16/2021 4:51 PM) [facility]
[2021-12-16] MEDS ORDERED: cefTRIAXone IV Push 1 GM VIAL. IVP ONE (17:15)
[2021-12-16] MEDS ORDERED: AZITHROMYCIN 500 MG in IV NORMAL SALINE 250ML 250 ML IV ONE (17:15)
--- NOTE | 2021-12-16 18:04 | PDOC1 ---
History and Physical Date of Service: DOS: DATE: 12/16/21 TIME: 17:37 Chief Complaint: Chief Complain: Multiple complaints History of Present Illness: HPI: 86-year-old female who presents to the emergency department for multiple complaints. Patient reports that over the last 3 days she has had nausea, diarrhea, green productive cough, nasal congestion and drainage, fatigue, body aches and shortness of breath with exertion and laying flat. Patient has a history of DVT, diabetes and hypertension and is on Coumadin. Patient denies fevers, urinary symptoms, blood in her stools, recent travel, sick exposure, chest pain. Patient reports that she took 2 tests at home for COVID-19 was negative. Past Medical/Surgical History: PMH/PSH: Past Medical History: Diabetes-Type II, DVT, Hypertension Past Surgical History: Cholecystectomy, Tonsillectomy, veins stripped; lap band ; right shoulder; D&Cx4 Allergies: Allergies: Coded Allergies: caffeine (Verified Allergy, Severe, Anxiety, 01/11/14) makes me have PVC's and MEAN Sulfa (Sulfonamide Antibiotics) (Verified Allergy, Intermediate, 10/06/15) aspirin (Verified Allergy, Intermediate, tennitis, 10/06/15) camphor (Verified Allergy, Intermediate, 10/06/15) cephalexin (Verified Allergy, Intermediate, 10/06/15) ciprofloxacin (Unverified Allergy, Intermediate, 01/11/14) clocortolone (Verified Allergy, Intermediate, 10/06/15) ibuprofen (Verified Allergy, Intermediate, 10/06/15) meperidine (Verified Allergy, Intermediate, 10/06/15) morphine (Verified Allergy, Intermediate, 10/06/15) quinine (Verified Allergy, Intermediate, 10/06/15) tetracycline (Verified Allergy, Intermediate, 10/06/15) thimerosal (Verified Allergy, Intermediate, 10/06/15) tramadol (Verified Allergy, Intermediate, 10/06/15) Uncoded Allergies: mycins (Allergy, Unknown, 10/06/15) Family History: Family History: Reviewed with no relative findings in the chart Social History: Social History: Smoking Status: Never Smoker Alcohol Use: None Drug Use: None Current Medications: Current Medications Current Medications Albuterol/ Ipratropium (Duoneb) 3 ml 1X ONCE NEB Last administered on 12/16/21at 15:44; Start 12/16/21 at 15:30; Stop 12/16/21 at 15:38; Status DC Sodium Chloride 1,000 ml @ 1,000 mls/hr 1X ONCE IV Last administered on 12/16/21at 15:47; Start 12/16/21 at 15:30; Stop 12/16/21 at 16:29; Status DC Ondansetron HCl (Zofran) 4 mg 1X ONCE IVP Last administered on 12/16/21at 15:46; Start 12/16/21 at 15:45; Stop 12/16/21 at 15:46; Status DC Iohexol (Omnipaque 350 Mg/ml) 90 ml 1X ONCE IV Last administered on 12/16/21at 16:51; Start 12/16/21 at 16:30; Stop 12/16/21 at 16:31; Status DC Info (CONTRAST GIVEN -- Rx MONITORING) 1 each PRN DAILY PRN MC SEE COMMENTS; Start 12/16/21 at 16:30; Stop 12/18/21 at 16:29 Sodium Chloride 1,000 ml @ 1,000 mls/hr Q1H IV ; Start 12/16/21 at 17:15; Stop 12/17/21 at 17:14 Ceftriaxone Sodium (Rocephin) 1 gm 1X ONCE IVP ; Start 12/16/21 at 17:15; Stop 12/16/21 at 17:20; Status DC Azithromycin 500 mg/Sodium Chloride 250 ml @ 250 mls/hr 1X ONCE IV ; Start 12/16/21 at 17:15; Stop 12/16/21 at 18:14 Ondansetron HCl (Zofran) 4 mg 1X ONCE IVP ; Start 12/16/21 at 17:30; Stop 12/16/21 at 17:31; Status DC Active Scripts Active Reported Metformin Hcl 500 Mg Tablet 1 Tab PO BID Cinnamon (Cinnamon Bark) 500 Mg Capsule 500 Mg PO Calci-Mix (Calcium Carbonate) 500 Mg Capsule 500 Mg PO TID Vitamin D (Cholecalciferol (Vitamin D3)) 1,000 Unit Tablet 1,000 Unit PO BID Magnesium (Magnesium Amino Acid Chelate) 100 Mg Tablet 100 Mg PO BID Lysine Hcl 100 Gm Powder 100 Gm [place] 3 1,000 Mg Softgel ([place]-3 Fatty Acids/Fish Oil) 1 Each Capsule 1 Each PO DAILY Fenofibrate 160 Mg Tablet 160 Mg PO DAILY Warfarin Sodium 2 Mg Tablet 2 Mg PO Warfarin Sodium 2.5 Mg Tablet 2.5 Mg PO Lisinopril 2.5 Mg Tablet 2.5 Mg PO DAILY ROS: Review of Systems Review of System REVIEW OF SYSTEMS: GENERAL: Denies weakness SKIN: No bruising, hair changes or rashes. EYES: No blurred, double or loss of vision. NOSE AND THROAT: No history of nosebleeds, hoarseness or sore throat. HEART: No history of palpitations, chest pain or shortness of breath on exertion. LUNGS: Positive shortness of breath GASTROINTESTINAL: Denies changes in appetite, nausea, vomiting, diarrhea or constipation. GENITOURINARY: No history of frequency, urgency, hesitancy or nocturia. NEUROLOGIC: Denies history of numbness, tingling, or tremor. PSYCHIATRIC: No history of panic, anxiety or depression. ENDOCRINE: No history of heat or cold intolerance, polyuria or polydipsia. EXTREMITIES: Denies joint pain, pain on walking or stiffness. Physical Exam: Vital Signs: Vital Signs Date Time Temp Pulse Resp B/P (MAP) Pulse Ox O2 Delivery O2 Flow Rate FiO2 12/16/21 16:41 76 215/77 (123) Nasal Cannula 2.0 12/16/21 15:47 95 12/16/21 14:50 98.7 20 98.7 Physcial Exam: General: Well developed, well nourished, no acute distress, well appearing HEENT: Pupils equally round and reactive to light, EOMI, no discharge, normal conjunctiva Neck: Supple, no nuchal rigidity, no JVD, trachea midline, no tenderness Cardiac: RRR, no murmurs, no gallops, no rubs Chest/Lungs: CTAB, no wheeze, no rhonchi, no crackles Abdomen: soft, non-distended, no guarding, no peritoneal signs, non-tender Back: No tenderness Extremities: no edema, pulses intact, non-tender,capillary refill <3 sec bilateral upper and lower extremities, Neuro: Alert and oriented x 4, no focal deficits, normal speech Labs: Labs: Laboratory Tests Test 12/16/21 15:35 12/16/21 16:15 White Blood Count 11.2 x10^3/uL (4.0-11.0) Red Blood Count 4.12 x10^6/uL (3.50-5.40) Hemoglobin 12.4 g/dL (12.0-15.5) Hematocrit 37.8 % (36.0-47.0) Mean Corpuscular Volume 92 fL (79-100) Mean Corpuscular Hemoglobin 30 pg (25-35) Mean Corpuscular Hemoglobin Concent 33 g/dL (31-37) Red Cell Distribution Width 12.4 % (11.5-14.5) Platelet Count 310 x10^3/uL (140-400) Neutrophils (%) (Auto) 81 % (31-73) Lymphocytes (%) (Auto) 12 % (24-48) Monocytes (%) (Auto) 6 % (0-9) Eosinophils (%) (Auto) 0 % (0-3) Basophils (%) (Auto) 1 % (0-3) Neutrophils # (Auto) 9.1 x10^3/uL (1.8-7.7) Lymphocytes # (Auto) 1.3 x10^3/uL (1.0-4.8) Monocytes # (Auto) 0.7 x10^3/uL (0.0-1.1) Eosinophils # (Auto) 0.0 x10^3/uL (0.0-0.7) Basophils # (Auto) 0.1 x10^3/uL (0.0-0.2) Prothrombin Time 22.1 SEC (11.7-14.0) Prothromb Time International Ratio 2.0 (0.8-1.1) Activated Partial Thromboplast Time 52 SEC (24-38) Sodium Level 127 mmol/L (136-145) Potassium Level 4.3 mmol/L (3.5-5.1) Chloride Level 91 mmol/L (98-107) Carbon Dioxide Level 25 mmol/L (21-32) Anion Gap 11 (6-14) Blood Urea Nitrogen 13 mg/dL (7-20) Creatinine 0.7 mg/dL (0.6-1.0) Estimated GFR (Cockcroft-Gault) 79.3 BUN/Creatinine Ratio 19 (6-20) Glucose Level 131 mg/dL (70-99) Lactic Acid Level 1.1 mmol/L (0.4-2.0) Calcium Level 9.6 mg/dL (8.5-10.1) Total Bilirubin 0.3 mg/dL (0.2-1.0) Aspartate Amino Transf (AST/SGOT) 25 U/L (15-37) Alanine Aminotransferase (ALT/SGPT) 17 U/L (14-59) Alkaline Phosphatase 27 U/L (46-116) Troponin I High Sensitivity 13 ng/L (4-50) ZR-Ldy-V-Type Natriuretic Peptide 414 pg/mL (0-449) Total Protein 8.2 g/dL (6.4-8.2) Albumin 3.7 g/dL (3.4-5.0) Albumin/Globulin Ratio 0.8 (1.0-1.7) Lipase 163 U/L (73-393) Influenza Type A Antigen Negative (NEGATIVE) Influenza Type B Antigen Negative (NEGATIVE) SARS-CoV-2 Antigen (Rapid) Negative (NEGATIVE) Laboratory Tests Test 12/16/21 15:35 12/16/21 16:15 White Blood Count 11.2 x10^3/uL (4.0-11.0) Red Blood Count 4.12 x10^6/uL (3.50-5.40) Hemoglobin 12.4 g/dL (12.0-15.5) Hematocrit 37.8 % (36.0-47.0) Mean Corpuscular Volume 92 fL (79-100) Mean Corpuscular Hemoglobin 30 pg (25-35) Mean Corpuscular Hemoglobin Concent 33 g/dL (31-37) Red Cell Distribution Width 12.4 % (11.5-14.5) Platelet Count 310 x10^3/uL (140-400) Neutrophils (%) (Auto) 81 % (31-73) Lymphocytes (%) (Auto) 12 % (24-48) Monocytes (%) (Auto) 6 % (0-9) Eosinophils (%) (Auto) 0 % (0-3) Basophils (%) (Auto) 1 % (0-3) Neutrophils # (Auto) 9.1 x10^3/uL (1.8-7.7) Lymphocytes # (Auto) 1.3 x10^3/uL (1.0-4.8) Monocytes # (Auto) 0.7 x10^3/uL (0.0-1.1) Eosinophils # (Auto) 0.0 x10^3/uL (0.0-0.7) Basophils # (Auto) 0.1 x10^3/uL (0.0-0.2) Prothrombin Time 22.1 SEC (11.7-14.0) Prothromb Time International Ratio 2.0 (0.8-1.1) Activated Partial Thromboplast Time 52 SEC (24-38) Sodium Level 127 mmol/L (136-145) Potassium Level 4.3 mmol/L (3.5-5.1) Chloride Level 91 mmol/L (98-107) Carbon Dioxide Level 25 mmol/L (21-32) Anion Gap 11 (6-14) Blood Urea Nitrogen 13 mg/dL (7-20) Creatinine 0.7 mg/dL (0.6-1.0) Estimated GFR (Cockcroft-Gault) 79.3 BUN/Creatinine Ratio 19 (6-20) Glucose Level 131 mg/dL (70-99) Lactic Acid Level 1.1 mmol/L (0.4-2.0) Calcium Level 9.6 mg/dL (8.5-10.1) Total Bilirubin 0.3 mg/dL (0.2-1.0) Aspartate Amino Transf (AST/SGOT) 25 U/L (15-37) Alanine Aminotransferase (ALT/SGPT) 17 U/L (14-59) Alkaline Phosphatase 27 U/L (46-116) Troponin I High Sensitivity 13 ng/L (4-50) AL-Eei-T-Type Natriuretic Peptide 414 pg/mL (0-449) Total Protein 8.2 g/dL (6.4-8.2) Albumin 3.7 g/dL (3.4-5.0) Albumin/Globulin Ratio 0.8 (1.0-1.7) Lipase 163 U/L (73-393) Influenza Type A Antigen Negative (NEGATIVE) Influenza Type B Antigen Negative (NEGATIVE) SARS-CoV-2 Antigen (Rapid) Negative (NEGATIVE) Images: Images PROCEDURE: CT ANGIOGRAPHY CHEST Exam: CT of chest with contrast INDICATION: Short of air, history of DVT TECHNIQUE: Sequential axial images through the chest obtained following the ad ministration of 90 mL of Isovue-370 IV contrast. Sagittal and coronal reformatted images were reconstructed from the axial data and reviewed. 3-D reformatted images were reconstructed from the axial data and reviewed. Exposure: One or more of the following in the visualized dose reduction techniques were utilized for this examination: 1. Automated exposure control 2. Adjustment of the MA and/or KV according to patient size 3. Use of iterative of reconstructive technique Comparisons: Chest x-ray same day FINDINGS: Visualized portions of the thyroid are unremarkable. No enlargement isn't lymph nodes are identified. Heart size is normal. No pericardial effusion. Mild coronary calcifications. Thoracic aorta has a normal course and caliber. Pulmonary artery is not enlarged. No pulmonary embolus identified within the main, lobar or segmental pulmonary arteries. Airways are patent. Mild bronchial wall thickening. No consolidation or pneumothorax. No pleural effusion or thickening. Gastric banding noted. Diffuse hepatic steatosis. No suspicious osseous lesions or acute fractures. IMPRESSION: 1. No pulmonary embolus identified within the main, lobar or segmental pulmonary arteries 2. Mild bronchial wall thickening, may relate to bronchitis. PROCEDURE: PORTABLE CHEST 1V Chest AP portable at 1542: Reason for examination: Short of breath. Comparison is made to previous study dated 07/05/2020. The heart size is normal. Mediastinum is unremarkable. Lung estrada show mild increase in the lung markings at the bases which could reflect some mild interstitial infiltrates. No pleural effusions are seen. No pneumothorax is evident. No acute bony abnormalities are seen. IMPRESSION: Mildly increased markings in the lung bases. This could reflect some developing infiltrates. Recommend clinical correlation and follow-up. Assessment/Plan Assessment/Plan Atypical bilateral pneumonia, possible gram-negative organisms, possible viral organisms Acute hypoxic respiratory failure Acute electrolyte derangementhyponatremia, hypochloremia suggestive of volume depletion Hypertensive urgency History of diabetes mellitus type 2 History of hypertension History of DVT on warfarin Admit to hospitalist service for further management IV antihypertensive regimen to maintain systolic blood pressures less than 180 Continue IV fluids Continue empiric IV antibiotics O2 supplementation to maintain O2 saturations greater than 92% Lovenox for DVT prophylaxis Protonix GI prophylaxis ADA diet CODE STATUS DNR Discussed with RN and SW Disposition inpatient management as above DPOA: Daughter Justifications for Admission Other Justification GABBY YAP MD Dec 16, 2021 18:04
[2021-12-16] MEDS ORDERED: SENNOSIDES 8.6 MG TABLET PO PRN (18:15)
[2021-12-16] MEDS ORDERED: DOCUSATE SODIUM 100 MG CAPSULE. PO PRN (18:15)
[2021-12-16] MEDS: IV NORMAL SALINE 1000ML BAG 1,000 ML IV SCH ×5 (18:15→23:41)
[2021-12-16] MEDS ORDERED: ONDANSETRON PF 4 MG/2 ML VIAL. IVP PRN (18:15)
[2021-12-16] MEDS ORDERED: ZOLPIDEM 5 MG TABLET. PO PRN (18:15)
[2021-12-16] MEDS ORDERED: diphenhydrAMINE 50 MG/ML VIAL IVP PRN (18:15)
[2021-12-16] MEDS ORDERED: DEXTROSE 50% 25 GM / 50ML DISP.SYRIN. IV PRN (18:15)
[2021-12-16] MEDS ORDERED: LORazepam 0.5 MG TABLET PO PRN (18:15)
[2021-12-16] MEDS ORDERED: PROCHLORPERAZINE 10 MG/2 ML VIAL. IV PRN (18:15)
[2021-12-16] MEDS ORDERED: diphenhydrAMINE HCL 25 MG CAPSULE PO PRN ×2 (18:15)
[2021-12-16] MEDS ORDERED: LABETALOL 20 MG/4 ML DISP.SYRIN. IVP PRN (19:15)
[2021-12-16] MEDS ORDERED: hydrALAZINE 20 MG/ML VIAL. IVP PRN (19:15)
[2021-12-16 19:23] LABS: BACTERIA,URINE 0 /HPF (0-FEW); RBC,URINE 0 /HPF (0-2); WBC,URINE 0 /HPF (0-4)
[2021-12-16 19:58] VITALS: BP 142/52
[2021-12-16] MEDS: CHOLECALCIFEROL (VITAMIN D3) 1,000 UNIT TABLET PO SCH (23:39)
[2021-12-16 23:48] VITALS: BP 121/43
[2021-12-17 03:09] VITALS: BP 125/49
[2021-12-17] MEDS: ACETAMINOPHEN 325 MG TABLET. PO PRN ×2 (03:33→18:21)
--- NOTE | 2021-12-17 04:49 | EKG ---
[facility] [address] [place] [address] Test Date: 2021-12-16 Test Time: 15:26:05 Pat Name: RITU PEREZ Department: Room: 6 Gender: F Section Gang: : [id number] Requested By: WES JAMIL Order Number: [id number] Reading MD: Don Aldrich MD Measurements Intervals [place] Rate: 96 P: 31 MA: 150 QRS: 84 QRSD: 138 T: 43 QT: 364 QTc: 461 Interpretive Statements SINUS RHYTHM RIGHT BUNDLE BRANCH BLOCK Electronically Signed On 12-18-2021 6:58:03 CDT by Don Aldrich MD
[2021-12-17 07:00] VITALS: BP 127/44
[2021-12-17 07:21] LABS: BASO % 1 % (0-3); EOS # 0.1 x10^3/uL (0.0-0.7); EOS % 1 % (0-3); HEMATOCRIT 34.2 % (36.0-47.0); HEMOGLOBIN 11.1 g/dL (12.0-15.5); LYMPH # 1.5 x10^3/uL (1.0-4.8); LYMPH % 20 % (24-48); MEAN CORPUSCULAR HEMOGLOBIN 30 pg (25-35); MEAN CORPUSCULAR HGB CONC 32 g/dL (31-37); MEAN CORPUSCULAR VOLUME 94 fL (79-100); MONO # 0.6 x10^3/uL (0.0-1.1); MONO % 9 % (0-9); NEUT # 5.2 x10^3/uL (1.8-7.7); NEUT % 70 % (31-73); PLATELET COUNT 255 x10^3/uL (140-400); RED BLOOD COUNT 3.65 x10^6/uL (3.50-5.40); RED CELL DISTRIBUTION WIDTH 12.5 % (11.5-14.5); WHITE BLOOD COUNT 7.5 x10^3/uL (4.0-11.0)
[2021-12-17 07:41] LABS: CALCIUM 8.3 mg/dL (8.5-10.1); CREATININE 0.8 mg/dL (0.6-1.0); MAGNESIUM 1.4 mg/dL (1.8-2.4); PHOSPHORUS 3.2 mg/dL (2.6-4.7); POTASSIUM 3.8 mmol/L (3.5-5.1)
[2021-12-17] MEDS: INSULIN LISPRO 300 UNITS/3 ML VIAL. SQ SCH ×3 (08:00→17:00)
[2021-12-17] MEDS: CHOLECALCIFEROL (VITAMIN D3) 1,000 UNIT TABLET PO SCH ×2 (08:18→20:35)
[2021-12-17] MEDS: IV NORMAL SALINE 1000ML BAG 1,000 ML IV SCH ×2 (08:51→21:32)
[2021-12-17] MEDS: DOXYCYCLINE HYCLATE 100 MG TABLET PO SCH ×2 (10:33→20:35)
[2021-12-17 11:00] VITALS: BP 161/55
[2021-12-17] MEDS ORDERED: MAGNESIUM SULFATE 4GM 100 ML IV ONE (11:00)
--- NOTE | 2021-12-17 11:10 | PDOC ---
[employer] PROGRESS NOTE Date of Service DOS: DATE: 12/17/21 TIME: 11:07 Chief Complaint Chief Complaint Atypical bilateral pneumonia, possible gram-negative organisms, possible viral organisms Acute hypoxic respiratory failure Acute electrolyte derangementhyponatremia, hypochloremia suggestive of volume depletion Hypertensive urgency History of diabetes mellitus type 2 History of hypertension History of DVT on warfarin Admit to hospitalist service for further management IV antihypertensive regimen to maintain systolic blood pressures less than 180 Continue IV fluids Continue empiric IV antibiotics O2 supplementation to maintain O2 saturations greater than 92% Lovenox for DVT prophylaxis Protonix GI prophylaxis ADA diet CODE STATUS DNR Discussed with RN and SW Disposition inpatient management as above DPOA: Daughter History of Present Illness History of Present Illness 12/17 Patient evaluated examined at bedside. She was sitting up at edge of bed. Still on nasal cannula said her breathing is still pretty bad. Continue IV antibiotics. We will add on steroids as well today and see how patient does. Otherwise continue current plan. Vitals/I&O Vitals/I&O: Vital Signs Date Time Temp Pulse Resp B/P (MAP) Pulse Ox O2 Delivery O2 Flow Rate FiO2 12/17/21 08:30 Nasal Cannula 2.0 12/17/21 07:00 98.3 63 16 127/44 (71) 93 98.3 I & O 12/16/21 12/16/21 12/17/21 15:00 23:00 07:00 Intake Total 1000 ml Output Total 650 ml Balance 1000 ml -650 ml Physical Exam General: Alert, Oriented X3, Cooperative Heart: Regular rate Lungs: Crackles, Other Abdomen: Normal bowel sounds, Soft, No tenderness Extremities: No edema, Normal pulses Skin: No significant lesion Labs Labs: Laboratory Tests Test 12/16/21 15:35 12/16/21 16:15 12/16/21 18:51 12/17/21 06:15 White Blood Count 11.2 x10^3/uL (4.0-11.0) 7.5 x10^3/uL (4.0-11.0) Red Blood Count 4.12 x10^6/uL (3.50-5.40) 3.65 x10^6/uL (3.50-5.40) Hemoglobin 12.4 g/dL (12.0-15.5) 11.1 g/dL (12.0-15.5) Hematocrit 37.8 % (36.0-47.0) 34.2 % (36.0-47.0) Mean Corpuscular Volume 92 fL (79-100) 94 fL (79-100) Mean Corpuscular Hemoglobin 30 pg (25-35) 30 pg (25-35) Mean Corpuscular Hemoglobin Concent 33 g/dL (31-37) 32 g/dL (31-37) Red Cell Distribution Width 12.4 % (11.5-14.5) 12.5 % (11.5-14.5) Platelet Count 310 x10^3/uL (140-400) 255 x10^3/uL (140-400) Neutrophils (%) (Auto) 81 % (31-73) 70 % (31-73) Lymphocytes (%) (Auto) 12 % (24-48) 20 % (24-48) Monocytes (%) (Auto) 6 % (0-9) 9 % (0-9) Eosinophils (%) (Auto) 0 % (0-3) 1 % (0-3) Basophils (%) (Auto) 1 % (0-3) 1 % (0-3) Neutrophils # (Auto) 9.1 x10^3/uL (1.8-7.7) 5.2 x10^3/uL (1.8-7.7) Lymphocytes # (Auto) 1.3 x10^3/uL (1.0-4.8) 1.5 x10^3/uL (1.0-4.8) Monocytes # (Auto) 0.7 x10^3/uL (0.0-1.1) 0.6 x10^3/uL (0.0-1.1) Eosinophils # (Auto) 0.0 x10^3/uL (0.0-0.7) 0.1 x10^3/uL (0.0-0.7) Basophils # (Auto) 0.1 x10^3/uL (0.0-0.2) 0.0 x10^3/uL (0.0-0.2) Prothrombin Time 22.1 SEC (11.7-14.0) Prothromb Time International Ratio 2.0 (0.8-1.1) Activated Partial Thromboplast Time 52 SEC (24-38) Sodium Level 127 mmol/L (136-145) 134 mmol/L (136-145) Potassium Level 4.3 mmol/L (3.5-5.1) 3.8 mmol/L (3.5-5.1) Chloride Level 91 mmol/L (98-107) 99 mmol/L (98-107) Carbon Dioxide Level 25 mmol/L (21-32) 29 mmol/L (21-32) Anion Gap 11 (6-14) 6 (6-14) Blood Urea Nitrogen 13 mg/dL (7-20) 9 mg/dL (7-20) Creatinine 0.7 mg/dL (0.6-1.0) 0.8 mg/dL (0.6-1.0) Estimated GFR (Cockcroft-Gault) 79.3 68.0 BUN/Creatinine Ratio 19 (6-20) Glucose Level 131 mg/dL (70-99) 86 mg/dL (70-99) Lactic Acid Level 1.1 mmol/L (0.4-2.0) Calcium Level 9.6 mg/dL (8.5-10.1) 8.3 mg/dL (8.5-10.1) Total Bilirubin 0.3 mg/dL (0.2-1.0) Aspartate Amino Transf (AST/SGOT) 25 U/L (15-37) Alanine Aminotransferase (ALT/SGPT) 17 U/L (14-59) Alkaline Phosphatase 27 U/L (46-116) Troponin I High Sensitivity 13 ng/L (4-50) BX-Jht-U-Type Natriuretic Peptide 414 pg/mL (0-449) Total Protein 8.2 g/dL (6.4-8.2) Albumin 3.7 g/dL (3.4-5.0) Albumin/Globulin Ratio 0.8 (1.0-1.7) Lipase 163 U/L (73-393) Influenza Type A Antigen Negative (NEGATIVE) Influenza Type B Antigen Negative (NEGATIVE) SARS-CoV-2 Antigen (Rapid) Negative (NEGATIVE) Urine Collection Type Unknown Urine Color (Auto) Colorless Urine Turbidity Clear Urine pH (Auto) 5.0 (<5.0-8.0) Urine Specific [place] 1.024 (1.000-1.030) Urine Protein (Auto) Negative mg/dL (Negative) Urine Glucose (Auto)(UA) Negative mg/dL (Negative) Urine Ketones (Auto) Negative mg/dL (Negative) Urine Blood (Auto) Negative (Negative) Urine Nitrite Negative (Negative) Urine Bilirubin (Auto) Negative (Negative) Urine Urobilinogen (Auto) Normal mg/dL (Normal) Urine Leukocyte Esterase (Auto) Negative (Negative) Urine RBC 0 /HPF (0-2) Urine WBC 0 /HPF (0-4) Urine Squamous Epithelial Cells Occ /LPF Urine Bacteria 0 /HPF (0-FEW) Phosphorus Level 3.2 mg/dL (2.6-4.7) Magnesium Level 1.4 mg/dL (1.8-2.4) Test 12/17/21 07:56 Glucose (Fingerstick) 99 mg/dL (70-99) Assessment and Plan Assessmemt and Plan Problems Medical Problems: (1) Hyponatremia Status: Acute (2) Hypoxia Status: Acute (3) Pneumonia Status: Acute Comment Review of Relevant I have reviewed the following items pascual (where applicable) has been applied. Medications: Current Medications Medications (Trade) Dose Ordered Sig/Cydney Route PRN Reason Start Time Stop Time Status Last Admin Dose Admin Albuterol/ Ipratropium (Duoneb) 3 ml 1X ONCE NEB 12/16/21 15:30 12/16/21 15:38 DC 12/16/21 15:44 Sodium Chloride 1,000 ml @ 1,000 mls/hr 1X ONCE IV 12/16/21 15:30 12/16/21 16:29 DC 12/16/21 15:47 Ondansetron HCl (Zofran) 4 mg 1X ONCE IVP 12/16/21 15:45 12/16/21 15:46 DC 12/16/21 15:46 Iohexol (Omnipaque 350 Mg/ml) 90 ml 1X ONCE IV 12/16/21 16:30 12/16/21 16:31 DC 12/16/21 16:51 Sodium Chloride 1,000 ml @ 1,000 mls/hr Q1H IV 12/16/21 17:15 12/17/21 07:33 DC 12/16/21 23:41 Ceftriaxone Sodium (Rocephin) 1 gm 1X ONCE IVP 12/16/21 17:15 12/16/21 17:20 DC 12/16/21 17:54 Azithromycin 500 mg/Sodium Chloride 250 ml @ 250 mls/hr 1X ONCE IV 12/16/21 17:15 12/16/21 18:15 DC 12/16/21 18:00 Ondansetron HCl (Zofran) 4 mg 1X ONCE IVP 12/16/21 17:30 12/16/21 17:31 DC 12/16/21 17:50 Vitamin D (Vitamin D3) 1,000 unit BID PO 12/16/21 21:00 12/17/21 08:18 Sodium Chloride 1,000 ml @ 100 mls/hr Q10H IV 12/16/21 18:15 12/17/21 08:51 Acetaminophen (Tylenol) 650 mg PRN Q4HRS PRN PO TEMP OVER 100.4F OR MILD PAIN 12/16/21 18:15 12/17/21 03:33 Doxycycline Hyclate (Vibra-Tab) 100 mg BID PO 12/17/21 10:00 12/17/21 10:33 Magnesium Sulfate 100 ml @ 25 mls/hr 1X ONCE IV 12/17/21 11:00 12/17/21 14:59 12/17/21 10:33 Justifications for Admission Other Justification Pneumonia JEANNETTE REINOSO MD Dec 17, 2021 11:10
[2021-12-17] MEDS: predniSONE 20 MG TABLET PO SCH (12:01)
[2021-12-17] MEDS: IPRATROPIUM/ALBUTEROL 20/100mcg/INH INHALER. INH SCH ×3 (12:01→20:35)
[2021-12-17 15:00] VITALS: BP 135/41
[2021-12-17] MEDS ORDERED: WARFARIN 2.5 MG TABLET. PO ONE (16:00)
[2021-12-17] MEDS: cefTRIAXone IV Push 1 GM VIAL. IVP SCH (18:14)
[2021-12-17 19:00] VITALS: BP 181/79
[2021-12-17] MEDS: LACTOBACILLUS RHAMNOSUS GG 1 CAPSULE. PO SCH (20:35)
[2021-12-17 23:00] VITALS: BP 160/74
[2021-12-18] VITALS (7 sets, daily range): BP systolic 153–186; BP diastolic 51–75
[2021-12-18] MEDS: IV NORMAL SALINE 1000ML BAG 1,000 ML IV SCH ×3 (00:15→17:31)
[2021-12-18] MEDS: INSULIN LISPRO 300 UNITS/3 ML VIAL. SQ SCH ×3 (07:49→17:00)
[2021-12-18] MEDS: IPRATROPIUM/ALBUTEROL 20/100mcg/INH INHALER. INH SCH ×2 (07:49→12:00)
[2021-12-18] MEDS: DOXYCYCLINE HYCLATE 100 MG TABLET PO SCH ×2 (08:14→22:12)
[2021-12-18] MEDS: predniSONE 20 MG TABLET PO SCH (08:14)
[2021-12-18] MEDS: CHOLECALCIFEROL (VITAMIN D3) 1,000 UNIT TABLET PO SCH ×2 (08:14→22:12)
[2021-12-18] MEDS: LACTOBACILLUS RHAMNOSUS GG 1 CAPSULE. PO SCH ×2 (08:14→22:12)
[2021-12-18 08:22] LABS: BASO % 0 % (0-3); EOS # 0.1 x10^3/uL (0.0-0.7); EOS % 1 % (0-3); HEMOGLOBIN 11.1 g/dL (12.0-15.5); LYMPH # 1.5 x10^3/uL (1.0-4.8); LYMPH % 23 % (24-48); MEAN CORPUSCULAR HEMOGLOBIN 31 pg (25-35); MEAN CORPUSCULAR HGB CONC 33 g/dL (31-37); MEAN CORPUSCULAR VOLUME 94 fL (79-100); MONO # 0.5 x10^3/uL (0.0-1.1); MONO % 7 % (0-9); NEUT # 4.3 x10^3/uL (1.8-7.7); NEUT % 68 % (31-73); PLATELET COUNT 275 x10^3/uL (140-400); RED BLOOD COUNT 3.63 x10^6/uL (3.50-5.40); RED CELL DISTRIBUTION WIDTH 12.4 % (11.5-14.5); WHITE BLOOD COUNT 6.4 x10^3/uL (4.0-11.0)
[2021-12-18 08:33] LABS: CALCIUM 8.4 mg/dL (8.5-10.1); CREATININE 0.6 mg/dL (0.6-1.0); GFR 94.8; POTASSIUM 3.9 mmol/L (3.5-5.1)
[2021-12-18 08:39] LABS: PROTHROMBIN TIME PATIENT 23.9 SEC (11.7-14.0)
--- NOTE | 2021-12-18 11:27 | PDOC ---
[employer] PROGRESS NOTE Date of Service DOS: DATE: 12/18/21 TIME: 11:26 Chief Complaint Chief Complaint Atypical bilateral pneumonia, possible gram-negative organisms, possible viral organisms Acute hypoxic respiratory failure Acute electrolyte derangementhyponatremia, hypochloremia suggestive of volume depletion Hypertensive urgency History of diabetes mellitus type 2 History of hypertension History of DVT on warfarin Admit to hospitalist service for further management IV antihypertensive regimen to maintain systolic blood pressures less than 180 Continue IV fluids Continue empiric IV antibiotics O2 supplementation to maintain O2 saturations greater than 92% Lovenox for DVT prophylaxis Protonix GI prophylaxis ADA diet CODE STATUS DNR Discussed with RN and SW Disposition inpatient management as above DPOA: Daughter History of Present Illness History of Present Illness 12/18 Patient evaluated examined at bedside. Says breathing improving a little bit. Still on nasal cannula. Will have coughing fits sometimes. Now that Covid negative scheduled nebulizer breathing treatments continue IV antibiotics. Can probably transition to p.o. tomorrow. Therapy modalities ordered. 12/17 Patient evaluated examined at bedside. She was sitting up at edge of bed. Still on nasal cannula said her breathing is still pretty bad. Continue IV antibiotics. We will add on steroids as well today and see how patient does. Otherwise continue current plan. Vitals/I&O Vitals/I&O: Vital Signs Date Time Temp Pulse Resp B/P (MAP) Pulse Ox O2 Delivery O2 Flow Rate FiO2 12/18/21 11:00 97.8 71 18 168/70 (102) 90 Nasal Cannula 2.0 97.8 I & O 12/17/21 12/17/21 12/18/21 15:00 23:00 07:00 Intake Total 280 ml 1180 ml Output Total 200 ml Balance 80 ml 1180 ml Physical Exam General: Alert, Oriented X3, Cooperative Heart: Regular rate Lungs: Crackles, Other Abdomen: Normal bowel sounds, Soft, No tenderness Extremities: No edema, Normal pulses Skin: No significant lesion Labs Labs: Laboratory Tests Test 12/17/21 11:36 12/17/21 16:37 12/17/21 19:04 12/18/21 06:50 Glucose (Fingerstick) 106 mg/dL (70-99) 162 mg/dL (70-99) 189 mg/dL (70-99) White Blood Count 6.4 x10^3/uL (4.0-11.0) Red Blood Count 3.63 x10^6/uL (3.50-5.40) Hemoglobin 11.1 g/dL (12.0-15.5) Hematocrit 34.0 % (36.0-47.0) Mean Corpuscular Volume 94 fL (79-100) Mean Corpuscular Hemoglobin 31 pg (25-35) Mean Corpuscular Hemoglobin Concent 33 g/dL (31-37) Red Cell Distribution Width 12.4 % (11.5-14.5) Platelet Count 275 x10^3/uL (140-400) Neutrophils (%) (Auto) 68 % (31-73) Lymphocytes (%) (Auto) 23 % (24-48) Monocytes (%) (Auto) 7 % (0-9) Eosinophils (%) (Auto) 1 % (0-3) Basophils (%) (Auto) 0 % (0-3) Neutrophils # (Auto) 4.3 x10^3/uL (1.8-7.7) Lymphocytes # (Auto) 1.5 x10^3/uL (1.0-4.8) Monocytes # (Auto) 0.5 x10^3/uL (0.0-1.1) Eosinophils # (Auto) 0.1 x10^3/uL (0.0-0.7) Basophils # (Auto) 0.0 x10^3/uL (0.0-0.2) Prothrombin Time 23.9 SEC (11.7-14.0) Prothromb Time International Ratio 2.2 (0.8-1.1) Sodium Level 136 mmol/L (136-145) Potassium Level 3.9 mmol/L (3.5-5.1) Chloride Level 100 mmol/L (98-107) Carbon Dioxide Level 30 mmol/L (21-32) Anion Gap 6 (6-14) Blood Urea Nitrogen 10 mg/dL (7-20) Creatinine 0.6 mg/dL (0.6-1.0) Estimated GFR (Cockcroft-Gault) 94.8 Glucose Level 96 mg/dL (70-99) Calcium Level 8.4 mg/dL (8.5-10.1) Magnesium Level 2.0 mg/dL (1.8-2.4) Test 12/18/21 07:40 Glucose (Fingerstick) 93 mg/dL (70-99) Assessment and Plan Assessmemt and Plan Problems Medical Problems: (1) Hyponatremia Status: Acute (2) Hypoxia Status: Acute (3) Pneumonia Status: Acute Comment Review of Relevant I have reviewed the following items pascual (where applicable) has been applied. Medications: Current Medications Medications (Trade) Dose Ordered Sig/Cydney Route PRN Reason Start Time Stop Time Status Last Admin Dose Admin Ceftriaxone Sodium (Rocephin) 1 gm Q24H IVP 12/17/21 18:00 12/17/21 18:14 Albuterol/ Ipratropium (Combivent Respimat 20-100 Mcg) 1 puff RTQID INH 12/17/21 12:00 12/18/21 07:49 Lactobacillus Rhamnosus (Culturelle) 1 cap BID PO 12/17/21 21:00 12/18/21 08:14 Warfarin Sodium (Coumadin) 2.5 mg 1X WARF ONCE PO 12/17/21 16:00 12/17/21 16:01 DC 12/17/21 16:07 Justifications for Admission Other Justification Pneumonia JEANNETTE REINOSO MD Dec 18, 2021 11:27
[2021-12-18] MEDS: ACETAMINOPHEN 325 MG TABLET. PO PRN ×2 (11:29→22:12)
[2021-12-18] MEDS: IPRATRPIUM/ALBUTEROL 0.5/2.5MG 3 ML NEBU. NEB SCH ×3 (12:09→20:43)
--- NOTE | 2021-12-18 12:34 | NUR ---
Pharmacy Warfarin Dosing Note S: Pharmacy consulted to assist with anticoagulation therapy started MAP EDITOR O: RITU PEREZ is a 86 year old F with H/O OF DVT LABS: Last INR: 2.2 Last HGB: 11.1 Last HCT: 34.2 Last PLT: 255 Last dose of 2.5 mg given on 12/17/21 at 1607 A:INR of 2.2 is within desired range. Target range for this patient is: 2 -3 P: Warfarin dose: 2.5 mg Today at 1600 Bridge Therapy: None Next INR due 12/19/21 AM Pharmacy anticoagulation service will continue to follow. THALIA AVILA RPH, 12/18/21 [id number]
[2021-12-18] MEDS ORDERED: guaiFENesin/CODEINE 100mg/10mg 5 ML LIQUID PO PRN (13:30)
[2021-12-18] MEDS: BENZONATATE 100 MG CAPSULE. PO SCH ×2 (13:34→22:12)
[2021-12-18] MEDS ORDERED: WARFARIN 2.5 MG TABLET. PO ONE (16:00)
--- NOTE | 2021-12-18 16:02 | NUR ---
SS following for discharge planning. SS reviewed pt chart and discussed with pt RN. Pt is from home with spouse and is currently requiring oxygen at two liters nasal canula. COVID19 negative. Pt on IV Rocephin. No home oxygen. Six minute walk ordered. PT/OT ordered. SS will continue to follow for discharge planning.
[2021-12-18] MEDS: cefTRIAXone IV Push 1 GM VIAL. IVP SCH (17:30)
[2021-12-19] MEDS: IV NORMAL SALINE 1000ML BAG 1,000 ML IV SCH (03:21)
[2021-12-19 03:42] VITALS: BP 181/61
[2021-12-19 07:00] VITALS: BP 181/72
[2021-12-19] MEDS: INSULIN LISPRO 300 UNITS/3 ML VIAL. SQ SCH ×2 (07:44→12:00)
[2021-12-19] MEDS: ACETAMINOPHEN 325 MG TABLET. PO PRN (07:52)
[2021-12-19 08:13] LABS: BASO % 0 % (0-3); EOS % 1 % (0-3); HEMATOCRIT 34.8 % (36.0-47.0); HEMOGLOBIN 11.4 g/dL (12.0-15.5); LYMPH # 1.5 x10^3/uL (1.0-4.8); LYMPH % 21 % (24-48); MEAN CORPUSCULAR HEMOGLOBIN 31 pg (25-35); MEAN CORPUSCULAR HGB CONC 33 g/dL (31-37); MEAN CORPUSCULAR VOLUME 93 fL (79-100); MONO # 0.6 x10^3/uL (0.0-1.1); MONO % 8 % (0-9); NEUT # 5.2 x10^3/uL (1.8-7.7); NEUT % 71 % (31-73); PLATELET COUNT 305 x10^3/uL (140-400); RED BLOOD COUNT 3.73 x10^6/uL (3.50-5.40); RED CELL DISTRIBUTION WIDTH 12.3 % (11.5-14.5); WHITE BLOOD COUNT 7.3 x10^3/uL (4.0-11.0)
[2021-12-19 08:25] LABS: PROTHROMBIN TIME PATIENT 25.4 SEC (11.7-14.0)
[2021-12-19 08:33] LABS: CALCIUM 8.8 mg/dL (8.5-10.1); CREATININE 0.7 mg/dL (0.6-1.0); GFR 79.3; MAGNESIUM 1.6 mg/dL (1.8-2.4); POTASSIUM 3.5 mmol/L (3.5-5.1)
[2021-12-19] MEDS: IPRATRPIUM/ALBUTEROL 0.5/2.5MG 3 ML NEBU. NEB SCH ×2 (08:51→11:41)
[2021-12-19] MEDS: BENZONATATE 100 MG CAPSULE. PO SCH ×2 (09:23→13:34)
[2021-12-19] MEDS: predniSONE 20 MG TABLET PO SCH (09:23)
[2021-12-19] MEDS: LACTOBACILLUS RHAMNOSUS GG 1 CAPSULE. PO SCH (09:23)
[2021-12-19] MEDS: CHOLECALCIFEROL (VITAMIN D3) 1,000 UNIT TABLET PO SCH (09:23)
[2021-12-19] MEDS: DOXYCYCLINE HYCLATE 100 MG TABLET PO SCH (09:23)
[2021-12-19 11:00] VITALS: BP 176/66
--- NOTE | 2021-12-19 11:27 | PDOC ---
[facility] [facility] PROGRESS NOTE Date of Service DOS: DATE: 12/19/21 TIME: 11:25 Chief Complaint Chief Complaint Atypical bilateral pneumonia, possible gram-negative organisms, possible viral organisms Acute hypoxic respiratory failure Acute electrolyte derangementhyponatremia, hypochloremia suggestive of volume depletion Hypertensive urgency History of diabetes mellitus type 2 History of hypertension History of DVT on warfarin Admit to hospitalist service for further management IV antihypertensive regimen to maintain systolic blood pressures less than 180 Continue IV fluids Continue empiric IV antibiotics O2 supplementation to maintain O2 saturations greater than 92% Lovenox for DVT prophylaxis Protonix GI prophylaxis ADA diet CODE STATUS DNR Discussed with RN and SW Disposition inpatient management as above DPOA: Daughter History of Present Illness History of Present Illness 12/19 Evaluated examined at bedside. Clinically improving. Upset of not getting much sleep last night. 6-minute walk ordered. Patient requesting home health. We will see if this can be set up. Possible d/c later this afternoon. 12/18 Patient evaluated examined at bedside. Says breathing improving a little bit. Still on nasal cannula. Will have coughing fits sometimes. Now that Covid negative scheduled nebulizer breathing treatments continue IV antibiotics. Can probably transition to p.o. tomorrow. Therapy modalities ordered. 12/17 Patient evaluated examined at bedside. She was sitting up at edge of bed. Still on nasal cannula said her breathing is still pretty bad. Continue IV antibiotics. We will add on steroids as well today and see how patient does. Otherwise continue current plan. Vitals/I&O Vitals/I&O: Vital Signs Date Time Temp Pulse Resp B/P (MAP) Pulse Ox O2 Delivery O2 Flow Rate FiO2 12/19/21 08:51 94 Nasal Cannula 2.0 12/19/21 07:00 97.8 65 20 181/72 (108) 97.8 I & O 12/18/21 12/18/21 12/19/21 15:00 23:00 07:00 Intake Total 1405 ml 1215 ml 120 ml Output Total 850 ml Balance 1405 ml 1215 ml -730 ml Physical Exam General: Alert, Oriented X3, Cooperative Heart: Regular rate Lungs: Crackles, Other Abdomen: Normal bowel sounds, Soft, No tenderness Extremities: No edema, Normal pulses Skin: No significant lesion Labs Labs: Laboratory Tests Test 12/18/21 16:59 3/29/22 19:51 12/19/21 06:10 12/19/21 07:12 Glucose (Fingerstick) 193 mg/dL (70-99) 144 mg/dL (70-99) 114 mg/dL (70-99) White Blood Count 7.3 x10^3/uL (4.0-11.0) Red Blood Count 3.73 x10^6/uL (3.50-5.40) Hemoglobin 11.4 g/dL (12.0-15.5) Hematocrit 34.8 % (36.0-47.0) Mean Corpuscular Volume 93 fL (79-100) Mean Corpuscular Hemoglobin 31 pg (25-35) Mean Corpuscular Hemoglobin Concent 33 g/dL (31-37) Red Cell Distribution Width 12.3 % (11.5-14.5) Platelet Count 305 x10^3/uL (140-400) Neutrophils (%) (Auto) 71 % (31-73) Lymphocytes (%) (Auto) 21 % (24-48) Monocytes (%) (Auto) 8 % (0-9) Eosinophils (%) (Auto) 1 % (0-3) Basophils (%) (Auto) 0 % (0-3) Neutrophils # (Auto) 5.2 x10^3/uL (1.8-7.7) Lymphocytes # (Auto) 1.5 x10^3/uL (1.0-4.8) Monocytes # (Auto) 0.6 x10^3/uL (0.0-1.1) Eosinophils # (Auto) 0.0 x10^3/uL (0.0-0.7) Basophils # (Auto) 0.0 x10^3/uL (0.0-0.2) Prothrombin Time 25.4 SEC (11.7-14.0) Prothromb Time International Ratio 2.4 (0.8-1.1) Sodium Level 138 mmol/L (136-145) Potassium Level 3.5 mmol/L (3.5-5.1) Chloride Level 101 mmol/L (98-107) Carbon Dioxide Level 29 mmol/L (21-32) Anion Gap 8 (6-14) Blood Urea Nitrogen 8 mg/dL (7-20) Creatinine 0.7 mg/dL (0.6-1.0) Estimated GFR (Cockcroft-Gault) 79.3 Glucose Level 100 mg/dL (70-99) Calcium Level 8.8 mg/dL (8.5-10.1) Magnesium Level 1.6 mg/dL (1.8-2.4) Test 12/19/21 11:21 Glucose (Fingerstick) 154 mg/dL (70-99) Assessment and Plan Assessmemt and Plan Problems Medical Problems: (1) Hyponatremia Status: Acute (2) Hypoxia Status: Acute (3) Pneumonia Status: Acute Comment Review of Relevant I have reviewed the following items pascual (where applicable) has been applied. Medications: Current Medications Medications (Trade) Dose Ordered Sig/Cydney Route PRN Reason Start Time Stop Time Status Last Admin Dose Admin Albuterol/ Ipratropium (Duoneb) 3 ml RTQID NEB 12/18/21 12:00 12/19/21 08:51 Warfarin Sodium (Coumadin) 2.5 mg 1X WARF ONCE PO 12/18/21 16:00 12/18/21 16:01 DC 12/18/21 16:23 Benzonatate (Tessalon Perle) 100 mg [id number] PO 12/18/21 14:00 12/19/21 09:23 Justifications for Admission Other Justification Pneumonia JEANNETTE REINOSO MD Dec 19, 2021 11:27
[2021-12-19] MEDS ORDERED: CEFD300C PO (11:34)
[2021-12-19] MEDS ORDERED: PRED20TA PO (11:34)
[2021-12-19] MEDS ORDERED: DOXY100T PO (11:34)
[2021-12-19] MEDS ORDERED: BENZ-8 PO (11:34)
--- NOTE | 2021-12-19 11:36 | SNU/HH DC ---
DISCHARGE WITH HOME HEALTH DISCHARGE INFORMATION: Discharge Date: Dec 19, 2021 Final Diagnosis: Problems Medical Problems: (1) Hyponatremia Status: Acute (2) Hypoxia Status: Acute (3) Pneumonia Status: Acute Condition on Discharge: Stable CODE STATUS: Code Status: Full HOME HEALTH: Face to Face: I certify this patient is under my care and that I, or a nurse practitioner or physician's sales assistant entertainment and media working with me, had a face to face encounter that meets the physician face to face encounter requirements with this patient on []. RN For Eval/Treatment: Yes Physical Therapy For: Evalulation/Treatment Occupational Therapy For: Evaluation/Treatment Pt Meets Homebound Status: Extreme weakness w/ amb., Limited distance walking POST DISCHARGE ORDERS: Activity Instructions for Disc: No restrictions Weight Bearing Status after Di: No restrictions DIET AFTER DISCHARGE: Regular CHECKS AFTER DISCHARGE: Checks after discharge: Check blood press - daily TREATMENT/EQUIPMENT ORDERS: Adaptive Equipment Issued: Walker CERTIFICATION STATEMENT: Certification Statement: Certification Statement: Based on the above finding, I certify that this patient is confined to the home and needs intermittent assisted care, physical therapy and/or speech therapy, or continues to need occupational therapy.~ This patient is under my care, and I have initiated the establishment of the plan of care.~ This patient will be followed by myself or a community physician who will periodically review the plan of care. Home Meds Active Scripts Cefdinir (CEFDINIR) 300 Mg Capsule, 1 CAP PO BID for pneumonia for 5 Days, #10 CAP Prov:JEANNETTE REINOSO MD 12/19/21 Prednisone (PREDNISONE) 20 Mg Tablet, 40 MG PO DAILY for pneumonia for 5 Days, #10 TAB Prov:JEANNETTE REINOSO MD 12/19/21 Benzonatate (BENZONATATE) 100 Mg Capsule, 100 MG PO PRN TID PRN for COUGH for 10 Days, #30 CAP Prov:JEANNETTE REINOSO MD 12/19/21 Doxycycline Hyclate (DOXYCYCLINE HYCLATE) 100 Mg Tablet, 100 MG PO BID for pneumonia for 5 Days, #10 TAB Prov:JEANNETTE REINOSO MD 12/19/21 Reported Medications Metformin Hcl (METFORMIN HCL) 500 Mg Tablet, 1 TAB PO BID, #60 TAB 3 Refills 10/06/15 Cinnamon Bark (CINNAMON) 500 Mg Capsule, 500 MG PO 01/11/14 Calcium Carbonate (CALCI-MIX) 500 Mg Capsule, 500 MG PO TID 01/11/14 Cholecalciferol (Vitamin D3) (VITAMIN D) 1,000 Unit Tablet, 1000 UNIT PO BID 01/11/14 Magnesium Amino Acid Chelate (MAGNESIUM) 100 Mg Tablet, 100 MG PO BID 01/11/14 Lysine Hcl (LYSINE HCL) 100 Gm Powder, 100 GM MC 01/11/14 Buffalo-3 Fatty Acids/Fish Oil (OMEGA 3 1,000 MG SOFTGEL) 1 Each Capsule, 1 EACH PO DAILY 01/11/14 Fenofibrate (FENOFIBRATE) 160 Mg Tablet, 160 MG PO DAILY 01/11/14 Warfarin Sodium (WARFARIN SODIUM) 2.5 Mg Tablet, 2.5 MG PO DAILY for anticoagulation 2.5mg dose q Friday, Friday, Friday, Friday, & Friday, and 1.25mg dose q Friday, and held every . 01/11/14 Lisinopril (LISINOPRIL) 2.5 Mg Tablet, 2.5 MG PO DAILY 01/11/14 JEANNETTE REINOSO MD Dec 19, 2021 11:36
--- NOTE | 2021-12-19 13:10 | NUR ---
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 Target range for this patient is: 2 -3 P: Warfarin dose: 2 mg Today at 1600 Bridge Therapy: None Next INR due 12/20/21. Pharmacy anticoagulation service will continue to follow. CHILO DOWNS RPH, 12/19/21 [id number]
--- NOTE | 2021-12-19 13:31 | NUR ---
SS following up with discharge planning. SS reviewed pt chart and discussed with pt RN. Pt is currently requiring oxygen at two liters nasal canula. COVID19 negative. PT/OT recommended home with home healthcare. Six minute walk completed and script received for oxygen. Script and clinical phoned and faxed to [facility], ; fax [phone]. Discharge orders received for home with home healthcare. SS met with pt and discussed discharge planning and home healthcare services. Pt requested referral to [facility], ; fax [phone]. Discharge orders and referral sent to [facility] as requested. Pt's RN notified. Pt reported having transportation to home. Oxygen tank provided for home.
--- NOTE | 2021-12-19 15:15 | NUR ---
Discharge Note: RITU PEREZ Discharge instructions and discharge home medications reviewed with Patient and a copy given. All questions have been answered and understanding verbalized. The following instructions and handouts were given: discharge instructions, new prescriptions, education and follow up recommendations. Discontinued lines and drains: Peripheral IV discontinued intact. Patient discharged to Home w/services with Family Member via Wheelchair off unit by [facility]UD[facility].
[2021-12-19] MEDS ORDERED: WARFARIN 2 MG TABLET. PO ONE (16:00)
== END 2021-12-19 15:15 | disposition home health service (06) | DRG 177 ==
LOC: ER 14:31 → 5 NORTH 17:22
PROVIDERS: ADMIT Internal Medicine; ATTEND Internal Medicine
DX: J15.6 Pneumonia due to other Gram-negative bacteria (principal); J96.01 Acute respiratory failure with hypoxia; E87.1 Hypo-osmolality and hyponatremia; E11.9 Type 2 diabetes mellitus without complications; E87.8 Other disorders of electrolyte and fluid balance, not elsewhere classified; I10 Essential (primary) hypertension; Z20.822 Contact with and (suspected) exposure to COVID-19; I16.0 Hypertensive urgency; Z66 Do not resuscitate; J12.9 Viral pneumonia, unspecified; Z79.01 Long term (current) use of anticoagulants; Z86.718 Personal history of other venous thrombosis and embolism; Z88.6 Allergy status to analgesic agent; Z88.1 Allergy status to other antibiotic agents; Z88.5 Allergy status to narcotic agent; Z88.2 Allergy status to sulfonamides; Z88.8 Allergy status to other drugs, medicaments and biological substances; Z90.49 Acquired absence of other specified parts of digestive tract
CPT/HCPCS: 36415; 71045; 71275; 80048; 80053; 81001; 82962; 83605; 83690; 83735; 83880; 84100; 84484; 85025; 85610; 85730; 87428; 93005; 94618; 94640; 94760; 96361; 96365; 96375; 96376; J0360; J0456; J0696; J2405; J3475; J7030; J7050; J7512; Q9967; U0003; 97110-GP; 97535-GO; 99285-25; G0378

== ENCOUNTER 2022-01-29 14:15 | Emergency (ER) | payer MEDICARE ==
[~2022-01-29] VITALS: Ht 149.9 cm; Wt 68.2 kg
[~2022-01-29 14:15] MED LIST changes: +BENZ-8 PO; +CEFD300C PO; +DOXY100T PO; +PRED20TA PO
--- NOTE | 2022-01-29 15:44 | RAD ---
EXAM: 1. Frontal chest with 3 view right rib series. 2. Right shoulder 3 views. 3. Right elbow 3 views. HISTORY: Fall, pain. COMPARISON: None. FINDINGS: Left hemidiaphragm is mildly elevated with left basilar atelectasis. There is no pneumothor ax or pleural effusion. The heart is not enlarged. There are atherosclerotic calcifications of the ao rta. There are no displaced right rib fractures. No fractures are appreciated at the right shoulder. The right distal clavicle has been resected. Supe rior subluxation of the humeral head is consistent with rotator cuff arthropathy. Glenohumeral osteoa rthritis is at least mild. No fractures are appreciated at the right elbow. Alignment is maintained. There is no joint effusion. Osteophytosis indicates mild tricompartmental osteoarthritis. There are changes of chronic lateral e picondylitis. IMPRESSION: 1. No displaced fracture. 2. Right rotator cuff arthropathy with at least mild glenohumeral osteoarthritis. 3. Resection of the right distal clavicle. 4. 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 Electronically signed by: Robby Vaughan MD (01/29/2022 3:42 PM) [id number]
--- NOTE | 2022-01-29 16:06 | RAD ---
EXAM: CT HEAD WITHOUT IV CONTRAST CLINICAL HISTORY: Reason: fall hit head / Spl. Instructions: / History: COMPARISON: None. TECHNIQUE: Routine CT of the head without contrast. Soft tissues and bone windows were reviewed. PQRS compliance statement - One or more of the following individualized dose reduction techniques wer e utilized for this study: 1. Automated exposure control 2. Adjustment of the mA and/or kV according to patient size 3. Use of iterative reconstruction technique FINDINGS: There is no evidence of hemorrhage, mass or extra-axial fluid collection. Arguello-white differentiation is maintained with no evidence of edema. Subcortical, periventricular as w ell as deep white matter foci of hypoattenuation likely chronic small vessel disease. There is no mass effect or shift of the intracranial structures. The ventricles and cerebral sulci are prominent for the patients stated age consistent with generaliz ed cerebral volume loss. The cerebellum and brainstem are unremarkable. The calvarium demonstrates no evidence of fracture or focal lesion. There is normal aeration of the visualized paranasal sinuses and mastoid air cells. The visualized portions of the orbits are normal. IMPRESSION: 1. No evidence for acute intracranial process. 2. White matter changes likely chronic small vessel disease. EXAM: CT CERVICAL SPINE WITHOUT IV CONTRAST CLINICAL HISTORY: Reason: fall hit head COMPARISON: None available. TECHNIQUE: Helical CT of the cervical spine was performed. Axial, coronal and sagittal reformatted im ages were also performed. PQRS compliance statement - One or more of the following individualized dose reduction techniques wer e utilized for this study: 1. Automated exposure control 2. Adjustment of the mA and/or kV according to patient size 3. Use of iterative reconstruction technique FINDINGS: Vertebral body heights are preserved. Decrease bone mineral density. No acute fracture. Trace anterolisthesis of C4 on C5 likely degenerative. Atlantodental degenerative changes are seen. Moderate C3-4, C4-5, severe C5-6, C6-7 and C7-T1 disc he ight loss. Associated posterior disc osteophyte complexes superimposed on congenital canal narrowing results in moderate C3-4, C4-5, moderate to severe C5-6 central canal stenosis. Advanced facet degene rative changes. Bilateral TMJ DJD. Sternoclavicular DJD. IMPRESSION: 1. Multilevel spondylosis as above 2. Negative acute fracture. 3. Trace anterolisthesis of C4 on C5. Electronically signed by: Luis Schofield MD (01/29/2022 4:04 PM) ZACHARY
--- NOTE | 2022-01-29 16:57 | RAD ---
EXAM: 3 views of the right wrist DATE: 01/29/2022 4:33 PM INDICATION: Reason: fall pain / Spl. Instructions: / History: COMPARISON: No Prior FINDINGS: Examination is limited given suboptimal lateral projection. Within these constraints there is an equi vocal lucency at the radial styloid suspicious for nondisplaced fracture. No other acute fracture or dislocation. Advanced thumb CMC and triscaphe DJD. Scattered IP joint and MCP degenerative changes ar e seen. Borderline ulnar positive variance. Chondrocalcinosis TFCC. Atherosclerotic vascular calcific ations are seen. No significant soft tissue swelling. IMPRESSION: 1. Suboptimal projection limits evaluation. Within these constraints there is cortical offset at the radial styloid suspicious for nondisplaced fracture and can be correlated with patient's symptoms. 2. Degenerative changes including advanced thumb CMC and triscaphe DJD. 3. Chondrocalcinosis TFCC. Electronically signed by: Luis Schofield MD (01/29/2022 4:55 PM) ZACHARY
--- NOTE | 2022-01-29 17:50 | PHYS DOC ---
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 Patient states she was ambulating, she tripped and fell hitting her right ribs on claw legs. Patient denies any loss of consciousness. Reports right shoulder pain, right rib pain, right wrist pain. States most of the pain is on touching those regions. Denies anything specifically relieving the pain. Denies any nausea, vomiting. (MELISSA ECHEVERRIA [employer]) Review of Systems: Review of Systems: Constitutional: Denies fever or chills. [] Eyes: Denies change in visual acuity. [] HENT: Denies nasal congestion or sore throat. [] Respiratory: Reports right rib pain. Denies cough or shortness of breath. [] Cardiovascular: Denies chest pain or edema. [] GI: Denies abdominal pain, nausea, vomiting, bloody stools or diarrhea. [] : Denies dysuria. [] Musculoskeletal: Reports right wrist pain, right shoulder pain Integument: Denies rash. [] Neurologic: Reports falling and hitting the head on the ground, denies focal weakness or sensory changes. [] Psychiatric: Denies depression or anxiety. [] (MELISSA ECHEVERRIA [employer]) Heart Score: C/O Chest Pain: N/A Risk Factors: Risk Factors: DM, Current or recent (<one month) smoker, HTN, HLP, family history of CAD, obesity. Risk Scores: Score 0 - 3: 2.5% MACE over next 6 weeks - Discharge Home Score 4 - 6: 20.3% MACE over next 6 weeks - Admit for Clinical Observation Score 7 - 10: 72.7% MACE over next 6 weeks - Early Invasive Strategies (JANUARYADRIANAMELISSA Barraza [employer]) Allergies: Allergies: Allergies Coded Allergies Type Severity Reaction Last Updated Verified caffeine Allergy Severe Anxiety 01/11/14 Yes Sulfa (Sulfonamide Antibiotics) Allergy Intermediate 10/06/15 Yes aspirin Allergy Intermediate tennitis 10/06/15 Yes azithromycin Allergy Intermediate 12/17/21 Yes camphor Allergy Intermediate 10/06/15 Yes cephalexin Allergy Intermediate 10/06/15 Yes ciprofloxacin Allergy Intermediate 01/11/14 No clocortolone Allergy Intermediate 10/06/15 Yes erythromycin base Allergy Intermediate 12/17/21 Yes ibuprofen Allergy Intermediate 10/06/15 Yes meperidine Allergy Intermediate 10/06/15 Yes morphine Allergy Intermediate 10/06/15 Yes oxytetracycline Allergy Intermediate 12/17/21 Yes quinine Allergy Intermediate 10/06/15 Yes tetracycline Allergy Intermediate 10/06/15 Yes thimerosal Allergy Intermediate 10/06/15 Yes tramadol Allergy Intermediate 10/06/15 Yes (MELISSA ECHEVERRIA APRN) Physical Exam: PE: Constitutional: Well developed, well nourished, no acute distress, non-toxic appearance. [] HENT: Normocephalic, atraumatic, bilateral external ears normal, oropharynx moist, no oral exudates, nose normal. [] Eyes: PERRLA, EOMI, conjunctiva normal, no discharge. [] Neck: Normal range of motion, no tenderness, supple, no stridor. [] Cardiovascular:Heart rate regular rhythm, no murmur [] Lungs & Thorax: Right ribs with no obvious deformity. No bruising, tenderness on palpation of the right lateral ribs mid axillary line approximately ribs 7,8 and 9, bilateral breath sounds clear to auscultation [] Abdomen: Bowel sounds normal, soft, no tenderness, no masses, no pulsatile masses. [] Skin: Warm, dry, no erythema, no rash. [] Back: No tenderness, no CVA tenderness. [] Extremities: Right shoulder with old healed surgical incision. No deformity noted to the right upper extremity, tenderness on palpation of the right SCM joint of the shoulder, full range of motion to the right shoulder, tenderness on palpation of the right lateral wrist, full range of motion to the right wrist, no scaphoid tenderness to the right wrist, adequate radial, medial, ulnar sensation to the right fingers. +2 right radial pulse. Cap refill less than 2 seconds to right fingers. Right elbow with no obvious deformity. The skin tear noted on the right olecranon process, 1 skin tear is roughly 3 x 4 cm, the other one is 3 x 3 cm. both were covered with steri strips. Neurologic: Alert and oriented X 3, normal motor function, normal sensory function, no focal deficits noted. [] Psychologic: Affect normal, judgement normal, mood normal. [] (MELISSA ECHEVERRIA [employer]) Current Patient Data: Vital Signs: Vital Signs Date Time Temp Pulse Resp B/P (MAP) Pulse Ox O2 Delivery O2 Flow Rate FiO2 01/29/22 15:00 80 20 164/72 (102) 95 Room Air 01/29/22 14:35 98.3 98.3 (AJNUARYMELISSA PARKER APRN) EKG: EKG: [] (MELISSA ECHEVERRIA APRN) Radiology/Procedures: Radiology/Procedures: []PROCEDURE: WRIST 3V RIGHT EXAM: 3 views of the right wrist DATE: 01/29/2022 4:33 PM INDICATION: Reason: fall pain / Spl. Instructions: / History: COMPARISON: No Prior FINDINGS: Examination is limited given suboptimal lateral projection. Within these constraints there is an equivocal lucency at the radial styloid suspicious for nondisplaced fracture. No other acute fracture or dislocation. Advanced thumb CMC and triscaphe DJD. Scattered IP joint and MCP degenerative changes are seen. Borderline ulnar positive variance. Chondrocalcinosis TFCC. Atherosclerotic vascular calcifications are seen. No significant soft tissue swelling. IMPRESSION: 1. Suboptimal projection limits evaluation. Within these constraints there is cortical offset at the radial styloid suspicious for nondisplaced fracture and can be correlated with patient's symptoms. 2. Degenerative changes including advanced thumb CMC and triscaphe DJD. 3. Chondrocalcinosis TFCC. Electronically signed by: Luis Silva MD (01/29/2022 4:55 PM) [facility] DICTATED and SIGNED BY: LUIS SILVA MD DATE: 01/29/221652 PROCEDURE: SHOULDER 2+V RIGHT EXAM: 1. Frontal chest with 3 view right rib series. 2. Right shoulder 3 views. 3. Right elbow 3 views. HISTORY: Fall, pain. COMPARISON: None. FINDINGS: Left hemidiaphragm is mildly elevated with left basilar atelectasis. There is no pneumothorax or pleural effusion. The heart is not enlarged. There are atherosclerotic calcifications of the aorta. There are no displaced right rib fractures. No fractures are appreciated at the right shoulder. The right distal clavicle has been resected. Superior subluxation of the humeral head is consistent with rotator cuff arthropathy. Glenohumeral osteoarthritis is at least mild. No fractures are appreciated at the right elbow. Alignment is maintained. There is no joint effusion. Osteophytosis indicates mild tricompartmental osteoarthritis. There are changes of chronic lateral epicondylitis. IMPRESSION: 1. No displaced fracture. 2. Right rotator cuff arthropathy with at least mild glenohumeral osteoarthritis. 3. Resection of the right distal clavicle. 4. 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 Electronically signed by: Robby Vaughan MD (01/29/2022 3:42 PM) [id number] DICTATED and SIGNED BY: AIRAM VAUGHAN MD DATE: 01/29/22 1535 (MELISSA ECHEVERRIA APRN) Course & Med Decision Making: Course & Med Decision Making Pertinent Labs and Imaging studies reviewed. (See chart for details) This is a 86-year-old female patient presented to the ED today to be evaluated after falling at midnight. No loss of consciousness. Patient is on Coumadin. Hit her head on the ground. Complaining of right shoulder, right ribs, right elbow pain, right wrist pain. CT of the head, cervical spine are negative for any acute findings. X-rays of the right shoulder, right elbow, right ribs including chest are negative for any acute findings. Right wrist x-rays interpreted by radiologist noted for suboptimal projection limits evaluation. Within these constraints there is cortical offset at the radial styloid suspicious for nondisplaced fracture and can be correlated with patient's symptoms. Patient has pain to this region. She was placed in a sugar-tong splint applied by the ED RN, neurovascular exam done by me is normal. Discharged with instructions to follow-up with Ortho in the next 1 to 3 days. Provided contact information. (MELISSA ECHEVERRIA APRN) Dragon Disclaimer: Dragon Disclaimer: This electronic medical record was generated, in whole or in part, using a voice recognition dictation system. (MELISSA ECHEVERRIA APRN) Departure Departure Impression: Primary Impression: Fall Qualified Codes: W19.XXXA - Unspecified fall, initial encounter Additional Impressions: Radial styloid fracture Qualified Codes: S52.514A - Nondisplaced fracture of right radial styloid process, initial encounter for closed fracture Contusion of rib on right side Qualified Codes: S20.211A - Contusion of right front wall of thorax, initial encounter Contusion of shoulder, right Qualified Codes: S40.011A - Contusion of right shoulder, initial encounter Skin tear of right elbow without complication Qualified Codes: S51.011A - Laceration without foreign body of right elbow, initial encounter Disposition: HOME / SELF CARE / HOMELESS Condition: STABLE Referrals: JEANNETTE DEL ROSARIO (PCP) follow up in the next seven days ASHLEY CRUM II, MD call him tomorrow and set up a follow up appointment Patient Instructions: Contusion, [id number], Fall Prevention and Home Safety, Radial Fracture, Skin Tear Care, [id number] Additional Instructions: You were evaluated in the emergency room after falling. Your CT of the head, neck, right elbow and shoulder x-rays, rib x-rays are negative for any acute findings. Your right wrist x-rays are suspicious for radial fracture. We will put you in a splint. Try to ice and elevate the extremity. Please contact the orthopedic doctor tomorrow and set up a follow-up appointment with him. Attending Signature Attending Signature I have reviewed the PA/REFINERY SUPERINTENDENT's note and plan of care. I was available for consultation as needed during the patient's visit in the emergency department. I agree with the clinical impression, plan, and disposition. (PREM LECHUGA DO) MELISSA ECHEVERRIA APRN January 29, 2022 17:50 PREM LECHUGA DO February 04, 2022 16:32
[2022-01-29] MEDS ORDERED: hydrALAZINE 20 MG/ML VIAL. IVP ONE (18:15)
[2022-01-29 19:48] VITALS: BP 183/78
== END 2022-01-29 19:50 | disposition home or self-care (01) ==
LOC: ER 14:15
DX: S52.514A Nondisplaced fracture of right radial styloid process, initial encounter for closed fracture (principal); S51.011A Laceration without foreign body of right elbow, initial encounter; S20.211A Contusion of right front wall of thorax, initial encounter; S40.011A Contusion of right shoulder, initial encounter; M54.2 Cervicalgia; R51.9 Headache, unspecified; M19.021 Primary osteoarthritis, right elbow; E11.9 Type 2 diabetes mellitus without complications; I10 Essential (primary) hypertension; Z86.718 Personal history of other venous thrombosis and embolism; Z87.891 Personal history of nicotine dependence; Z79.01 Long term (current) use of anticoagulants; Z88.1 Allergy status to other antibiotic agents; Z88.2 Allergy status to sulfonamides; Z88.5 Allergy status to narcotic agent; Z88.6 Allergy status to analgesic agent; Z88.8 Allergy status to other drugs, medicaments and biological substances; W01.198A Fall on same level from slipping, tripping and stumbling with subsequent striking against other object, initial encounter; Y93.89 Activity, other specified; Y92.89 Other specified places as the place of occurrence of the external cause; Y99.8 Other external cause status
CPT/HCPCS: 29125; 70450; 71101; 72125; 73030; 73080; 73110; 99285-25